=== PATIENT | male | born 1995 | race African-American/Black ===

== ENCOUNTER 2016-05-30 22:40 | Inpatient (IN) | payer BC ==
[2016-05-30] MEDS ORDERED: diPHENhydraMINE PO* 50 MG PO ONE (23:10)
[2016-05-30] MEDS ORDERED: diPHENhydraMINE PO* 50 MG ONE (23:12)
[2016-05-30 23:16] LABS: Hematocrit 50 % (42-52); Hemoglobin 16.7 g/dl (14.0-18.0); Mean Corpuscular HGB Conc 34 g/dl (31-36); Mean Corpuscular Hemoglobin 28 pg (27-31); Mean Corpuscular Volume 83 fL (80-94); Mean Platelet Volume 8 um3 (7.4-10.4); Red Blood Count 5.94 10^6/ul (4.0-5.4); Red Cell Distribution Width 13 % (10.5-15); White Blood Count 11.9 10^3/ul (3.5-10.8)
[2016-05-30 23:17] LABS: Urine Bilirubin Negative (Negative); Urine Glucose Negative (Negative); Urine Nitrite Negative (Negative)
[2016-05-30 23:31] LABS: ALT 141 U/L (7-52); AST 49 U/L (13-39); Alkaline Phosphatase 96 U/L (34-104); Anion Gap -1 mmol/L (2-11); BUN/Creatinine Ratio 8.5 (8-20); Benzodiazepine Urine Screen None Detected (None Detect); Blood Urea Nitrogen 10 mg/dL (6-24); CO2 Carbon Dioxide 25 mmol/L (22-32); Calcium 10.3 mg/dL (8.6-10.3); Chloride 106 mmol/L (101-111); EGFR African American 101.2 (>60); EGFR Non-African American 78.7 (>60); Globulin 2.7 g/dL (2-4); Glucose 108 mg/dL (70-100); Potassium 3.4 mmol/L (3.5-5.0); Sodium 130 mmol/L (133-145); Total Protein 7.7 g/dL (6.4-8.9)
[2016-05-30 23:56] LABS: Acetaminophen < 15 mcg/mL; Alcohol < 10 mg/dL (<10); Salicylate < 2.50 mg/dL (<30)
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
[2016-05-31 00:06] LABS: TSH (Thyroid Stimulating Horm) 3.31 mcIU/mL (0.34-5.60)
[2016-05-31] MEDS ORDERED: Ziprasidone CAP* 80 MG PO ONE (03:36)
[2016-05-31] MEDS ORDERED: Ziprasidone CAP* 80 MG ONE (03:45)
[2016-05-31] MEDS ORDERED: Al Hydrox/Mg Hydrox/Simet LIQ* 30 ML UDC PO PRN (08:08)
[2016-05-31] MEDS ORDERED: Acetaminophen TAB* 325 MG PO PRN (08:08)
--- NOTE | 2016-05-31 15:07 | PN ---
Subjective - Subjective Service Type: 32369 Hosp care 15 min low complexity Subjective: Pt's mother presented to the ED and asked about potential discharge (mother talked about staying with him). I reviewed the patients H&P and D/c Summary from his last hospitalization in 2013 and the mental health evaluation from yesterday. Although his symptoms have have been exacerbated due to recent stressors, I am concerned about SI "all the time" (with secret overdose 1 mo ago and recent acute SI) and reported symptoms of depression over the last week. Because of this, I recommend continuing to hold for psychiatric hospitalization. To consider re-evaluating the patient tomorrow if symptoms remain stable overnight. Plan - Plan Treatment Plan: Name: LORE ROPER Birthdate: 1995 [id number] Medications: Current Medications Acetaminophen (Tylenol Tab*) 650 mg PO Q4H PRN PRN Reason: PAIN or TEMP > 101 F Al Hydrox/Mg Hydrox/Simethicone (Maalox Plus*) 30 ml PO Q4H PRN PRN Reason: INDIGESTION Device (Nicotine Mouth Piece*) 1 each INH .CARTRIDGE CASS Hydroxyzine HCl (Atarax Tab*) 50 mg PO Q12H PRN PRN Reason: ANXIETY, AGITATION Multivitamins (Theragran Tab*) 1 tab PO DAILY CASS Nicotine (Nicotine Inhaler*) 10 mg INH Q2H PRN PRN Reason: CRAVING Nicotine Polacrilex (Nicotine Gum*) 2 mg PO Q2H PRN PRN Reason: CRAVING Ziprasidone (Geodon Cap*) 80 mg PO BEDTIME CASS
--- NOTE | 2016-05-31 15:58 | PN ---
ED Flex Patient Progress Note Subjective: This is a 21 year-old male who is pending transfer to another psychiatric facility. Pt offers no complaints at this time. Appears stable and calm. Objective: Vitals: Most recent vital signs documented below. General NAD, Alert and oriented x3. Heart: rrr Lungs: CTA without rales, rhonchi, wheezing Laboratory: Current laboratory results documented below. Assessment: Stable awaiting transfer Plan: Pending psychiatric transfer. Will monitor. Vital Signs Temp Pulse Resp BP Pulse Ox 97.3 F 73 16 123/57 98 05/31/16 15:52 05/31/16 15:52 05/31/16 15:52 05/31/16 15:52 05/31/16 15:52 Lab Results - Entire Visit 05/30/16 05/30/16 05/30/16 23:07 23:07 23:07 WBC RBC Hgb Hct MCV MCH MCHC RDW Plt Count MPV Neut % (Auto) Lymph % (Auto) [place] % (Auto) Eos % (Auto) Baso % (Auto) Absolute Neuts (auto) Absolute Lymphs (auto) Absolute Monos (auto) Absolute Eos (auto) Absolute Basos (auto) Absolute Nucleated RBC Nucleated RBC % Sodium 130 L Potassium 3.4 L Chloride 106 Carbon Dioxide 25 Anion Gap -1 L BUN 10 Creatinine 1.18 H Est GFR ( Amer) 101.2 Est GFR (Non-Af Amer) 78.7 BUN/Creatinine Ratio 8.5 Glucose 108 H Calcium 10.3 Total Bilirubin 0.60 AST 49 H ALT 141 H Alkaline Phosphatase 96 Total Protein 7.7 Albumin 5.0 Globulin 2.7 Albumin/Globulin Ratio 1.9 TSH 3.31 Urine Color Yellow Urine Appearance Clear Urine pH 5.0 Ur Specific [place] 1.023 Urine Protein Negative Urine Ketones Negative Urine Blood Negative Urine Nitrate Negative Urine Bilirubin Negative Urine Urobilinogen Negative Ur Leukocyte Esterase Negative Urine Glucose Negative Salicylates < 2.50 Urine Opiates Screen None detected Acetaminophen < 15 Ur Barbiturates Screen None detected Ur Phencyclidine Scrn None detected Ur Amphetamines Screen None detected U Benzodiazepines Scrn None detected Urine Cocaine Screen None detected U Cannabinoids Screen None detected Serum Alcohol < 10 05/30/16 23:07 WBC 11.9 H RBC 5.94 H Hgb 16.7 Hct 50 MCV 83 MCH 28 MCHC 34 RDW 13 Plt Count 286 MPV 8 Neut % (Auto) 73.1 Lymph % (Auto) 22.5 L Bacon % (Auto) 3.6 Eos % (Auto) 0.2 Baso % (Auto) 0.6 Absolute Neuts (auto) 8.7 H Absolute Lymphs (auto) 2.7 Absolute Monos (auto) 0.4 Absolute Eos (auto) 0 Absolute Basos (auto) 0.1 Absolute Nucleated RBC 0.01 Nucleated RBC % 0.1 Sodium Potassium Chloride Carbon Dioxide Anion Gap BUN Creatinine Est GFR ( Amer) Est GFR (Non-Af Amer) BUN/Creatinine Ratio Glucose Calcium Total Bilirubin AST ALT Alkaline Phosphatase Total Protein Albumin Globulin Albumin/Globulin Ratio TSH Urine Color Urine Appearance Urine pH Ur Specific [place] Urine Protein Urine Ketones Urine Blood Urine Nitrate Urine Bilirubin Urine Urobilinogen Ur Leukocyte Esterase Urine Glucose Salicylates Urine Opiates Screen Acetaminophen Ur Barbiturates Screen Ur Phencyclidine Scrn Ur Amphetamines Screen U Benzodiazepines Scrn Urine Cocaine Screen U Cannabinoids Screen Serum Alcohol
[2016-05-31] MEDS: Ziprasidone CAP* 80 MG PO SCH (21:07)
[2016-06-01] MEDS: Ziprasidone CAP* 80 MG PO SCH (20:46)
[2016-06-02] MEDS: Nicotine Inhaler* 10 MG AMP INH PRN ×3 (05:45→20:13)
[2016-06-02] MEDS: Mouth Piece, Nicotine* 1 EACH CARTRIDGE INH SCH (05:45)
[2016-06-02] MEDS: Nicotine GUM* 2 MG PO PRN ×2 (05:45→07:56)
[2016-06-02] MEDS: Vitamin THERAPEUTIC TAB PO SCH ×3 (07:39→11:07)
[2016-06-02] MEDS ORDERED: Nicotine Inhaler* 10 MG AMP INH PRN (13:10)
[2016-06-02] MEDS: Nicotine PATCH 21 MG/24 HR* PATCH TRANSDERM SCH (13:45)
--- NOTE | 2016-06-02 13:46 | PN ---
MHU: Group Therapy Note - Service Type Service Type: [id number] Group Psychotherapy - Cognitive Behavioral Group Therapy ( CBT):Patient was attentive and participatory in CBT programming this morning, and remained in good behavioral control. Patient expressed positive insights regarding relevant treatment interventions and goals.
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
[2016-06-02] MEDS: Ziprasidone CAP* 80 MG PO SCH (20:02)
[2016-06-02] MEDS ORDERED: Mouth Piece, Nicotine* 1 EACH CARTRIDGE ONE (20:13)
[2016-06-02] MEDS: Nicotine Patch Removal NOTE PATCH OFF SCH (20:14)
[2016-06-03 09:10] LABS: Albumin 4.4 g/dL (3.2-5.2); BUN/Creatinine Ratio 10.7 (8-20); Calcium 10.1 mg/dL (8.6-10.3); EGFR African American 98.3 (>60); EGFR Non-African American 76.5 (>60); Globulin 2.4 g/dL (2-4); Potassium 4.8 mmol/L (3.5-5.0); Total Bilirubin 0.5 mg/dL (0.2-1.0); Total Protein 6.8 g/dL (6.4-8.9)
[2016-06-03] MEDS: Vitamin THERAPEUTIC TAB PO SCH (09:52)
[2016-06-03] MEDS: Nicotine PATCH 21 MG/24 HR* PATCH TRANSDERM SCH (09:52)
--- NOTE | 2016-06-03 11:50 | PN ---
Subjective - Subjective Service Type: 64656 Hosp care 15 min low complexity Subjective: Lore reports feeling better, calm and peaceful in mood. He denies any dangerous intent or plan. He feels that with supported housing, he will be in a safer place. He looks forward to likely discharge tomorrow. Objective - Appearance Appearance: Healthy Appearing Dysmorphic Features: No Hygiene: Normal Grooming: Well Kept - Behavior Psychomotor Activities: Normal Exhibits Abnormal Movement: No - Attitude and Relatedness Attitude and Relatedness: Well Related Eye Contact: Good - Speech Quality: Unpressured Latencies: Normal Quantity: Appropriate - Mood Patient's Decription of Mood: "Calm and peaceful" - Affect Observed Affect: Good Affect Consistent with: Euthymia - Thought Process Patient's Thought Process: Coherent, Goal Directed Thought Content: No Passive Wish, No Suicidal Planning, No Homicidal Ideation, No Paranoid Ideation - Sensorium Experiencing Hallucinations: No, Sensorium is Clear Type of Hallucinations: Visual: No, Auditory: No, Command: No - Level of Consciousness Level of Consciousness: Alert Orientation: Yes Intact, Yes Orientated to Time, Yes Orientated to Place, Yes Orientated to Person - Impulse Control Impulse Control: Intact - Insight and Judgement Insight and Judgement: Fair - Group Participation Particating in Group Activities: Yes Group Participation Comments: but only about 1/2 of offered groups - Medication Management Medication Management Adherence: Yes Assessment - Assessment Merits Inpatient Hospitalization: Consolidate Improvements, For Discharge Planning Inpatient DSM-IV Dx: Major depressive disorder, recurrent, moderate; ADHD by history; personality disorder diagnosis deferred. Clinical Impression: Lore Simpson is a 21-year-old, single father of a 10 month-old child, who has been admitted out of concern for his safety from his report of daily suicidal ideation following a suicide attempt about a month ago by overdose on a bottle of Geodon and a bottle of what was most likely a stimulant. He states that having had time to think about this during the course of an extended stay in the ED flex space awaiting a bed to come open here, he has had resolution of suicidal ideation and feels safe for discharge. In order to ensure that discharge is into a safe setting, we will be gathering further collateral from his family. We will also be speaking with any care providers that we can determine has seen him recently, but he reports that he has been getting his prescriptions refilled without seeing anyone [id number], and has lapsed from care at [facility] for about the past five to six months. We will be calling [facility] to find out more about his history there and also to collaborate care going forward. For now, we are continuing his Geodon, but will discuss with him and with past providers at [facility] what other medications have perhaps been successful in the past or what med trials they feel may be helpful per experience they may have with him. We will be encouraging him to make use of the therapeutic milieu and groups. We will be monitoring his mental status and safety on 15 minute checks. We will be working toward disposition of returning home with follow-up care at [facility]. Will repeat CMP to monitor sodium , potassium, creatinine, transaminases and glucose. 06.03.16 Lore reports improved mental status with sustained remission of SI and good mood, and without any psychotic symptoms. Recheck of CMP found recovering transaminases and glucose. Continued elevation of creatinine to around 1.2 is an increase from prior checks over the past 3 years in the 0.9-1.1 range, but the GFR calculated from the current reading is in the normal range for this -[place] male. Planning for discharge tomorrow if housing arrangements are in place. Plan - Plan Treatment Plan: Name: LORE SIMPSON Birthdate: 1995 [id number] Continue current meds. Encourage groups, milieu. Monitor MS, safety. Plan toward possible d/c tomorrow. Continued Medication Management: Continue Outpt Medication Medications: Current Medications Acetaminophen (Tylenol Tab*) 650 mg PO Q4H PRN PRN Reason: PAIN or TEMP > 101 F Al Hydrox/Mg Hydrox/Simethicone (Maalox Plus*) 30 ml PO Q4H PRN PRN Reason: INDIGESTION Device (Nicotine Mouth Piece*) 1 each INH .[facility] Last Admin: 06/02/16 05:45 Dose: 1 each Hydroxyzine HCl (Atarax Tab*) 50 mg PO Q12H PRN PRN Reason: ANXIETY, AGITATION Multivitamins (Theragran Tab*) 1 tab PO DAILY [facility] Last Admin: 06/03/16 09:52 Dose: 1 tab Nicotine (Nicotine Inhaler*) 10 mg INH Q2H PRN PRN Reason: CRAVING Last Admin: 06/02/16 20:13 Dose: 10 mg Nicotine (Nicotine Patch 21 Mg/24 Hr*) 1 patch TRANSDERM DAILY@0800 [facility] Last Admin: 06/03/16 09:52 Dose: 1 patch Nicotine Polacrilex (Nicotine Gum*) 2 mg PO Q2H PRN PRN Reason: CRAVING Last Admin: 06/02/16 07:56 Dose: 2 mg Pharmacy Profile Note (Nicotine Patch Removal Note*) 1 note PATCH OFF 2100 [facility] Last Admin: 06/02/16 20:14 Dose: 1 note Ziprasidone (Geodon Cap*) 80 mg PO BEDTIME [facility] Last Admin: 06/02/16 20:02 Dose: 80 mg - Discharge Plan Discharge Plan: Outpatient Follow Up Outpatient Program: [facility]
--- NOTE | 2016-06-03 11:51 | PN ---
MHU: Group Therapy Note - Service Type Service Type: 07300 Group Psychotherapy - Cognitive Behavioral Group Therapy ( CBT):Patient was attentive and participatory in CBT programming this morning, and remained in good behavioral control. Patient expressed positive insights regarding relevant treatment interventions and goals.
[2016-06-03] MEDS: Mouth Piece, Nicotine* 1 EACH CARTRIDGE INH SCH (15:33)
[2016-06-03] MEDS: Nicotine Inhaler* 10 MG AMP INH PRN (15:33)
[2016-06-03] MEDS: Ziprasidone CAP* 80 MG PO SCH (20:07)
[2016-06-03] MEDS: hydrOXYzine HCL TAB* 50 MG PO PRN (20:07)
[2016-06-03] MEDS: Nicotine Patch Removal NOTE PATCH OFF SCH (20:07)
[2016-06-04] MEDS: Nicotine PATCH 21 MG/24 HR* PATCH TRANSDERM SCH (08:28)
[2016-06-04] MEDS: Vitamin THERAPEUTIC TAB PO SCH (08:29)
--- NOTE | 2016-06-04 11:53 | PN ---
MHU: Group Therapy Note - Service Type Service Type: 66249 Group Psychotherapy - Cognitive Behavioral Group Therapy ( CBT):Patient was attentive and participatory in CBT programming this morning, and remained in good behavioral control. Patient expressed positive insights regarding relevant treatment interventions and goals.
[2016-06-04] MEDS: Nicotine Inhaler* 10 MG AMP INH PRN (18:01)
--- NOTE | 2016-06-04 18:26 | PN ---
Subjective - Subjective Service Type: 78861 Hosp care 15 min low complexity Subjective: Sabino reports feeling safe and ready to discharge tomorrow. He has no complaints. Objective - Appearance Appearance: Healthy Appearing Dysmorphic Features: No Hygiene: Normal Grooming: Fairly Well Kept - Behavior Psychomotor Activities: Normal Exhibits Abnormal Movement: No - Attitude and Relatedness Attitude and Relatedness: Well Related Eye Contact: Good - Speech Quality: Unpressured Latencies: Normal Quantity: Appropriate - Mood Patient's Decription of Mood: "Fine" - Affect Observed Affect: Good Affect Consistent with: Euthymia - Thought Process Patient's Thought Process: Coherent, Goal Directed Thought Content: No Passive Wish, No Suicidal Planning, No Homicidal Ideation, No Paranoid Ideation - Sensorium Experiencing Hallucinations: No, Sensorium is Clear Type of Hallucinations: Visual: No, Auditory: No, Command: No - Level of Consciousness Level of Consciousness: Alert Orientation: Yes Intact, Yes Orientated to Time, Yes Orientated to Place, Yes Orientated to Person - Impulse Control Impulse Control: Tenuous - Insight and Judgement Insight and Judgement: Fair - Group Participation Particating in Group Activities: Yes - Medication Management Medication Management Adherence: Yes Assessment - Assessment Merits Inpatient Hospitalization: Consolidate Improvements, For Discharge Planning Inpatient DSM-IV Dx: Major depressive disorder, recurrent, moderate; ADHD by history; personality disorder diagnosis deferred. Clinical Impression: Sabino Simpson is a 21-year-old, single father of a 10 month-old child, who has been admitted out of concern for his safety from his report of daily suicidal ideation following a suicide attempt about a month ago by overdose on a bottle of Geodon and a bottle of what was most likely a stimulant. He states that having had time to think about this during the course of an extended stay in the ED flex space awaiting a bed to come open here, he has had resolution of suicidal ideation and feels safe for discharge. In order to ensure that discharge is into a safe setting, we will be gathering further collateral from his family. We will also be speaking with any care providers that we can determine has seen him recently, but he reports that he has been getting his prescriptions refilled without seeing anyone [id number], and has lapsed from care at [facility] for about the past five to six months. We will be calling [facility] to find out more about his history there and also to collaborate care going forward. For now, we are continuing his Geodon, but will discuss with him and with past providers at [facility] what other medications have perhaps been successful in the past or what med trials they feel may be helpful per experience they may have with him. We will be encouraging him to make use of the therapeutic milieu and groups. We will be monitoring his mental status and safety on 15 minute checks. We will be working toward disposition of returning home with follow-up care at [facility]. Will repeat CMP to monitor sodium , potassium, creatinine, transaminases and glucose. 06.03.16 Sabino reports improved mental status with sustained remission of SI and good mood, and without any psychotic symptoms. Recheck of CMP found recovering transaminases and glucose. Continued elevation of creatinine to around 1.2 is an increase from prior checks over the past 3 years in the 0.9-1.1 range, but the GFR calculated from the current reading is in the normal range for this -Italian male. Planning for discharge tomorrow if housing arrangements are in place. 06.04.16 Sabino will discharge tomorrow morning. He has no complaints, and follow up care is in place per nurse discharge planner Kalpana Rocha. Plan - Plan Treatment Plan: Name: SABINO SIMPSON Birthdate: 1995 [id number] Continue current meds. Encourage groups, milieu. Monitor MS, safety. Plan toward d/c tomorrow. Medications: Current Medications Acetaminophen (Tylenol Tab*) 650 mg PO Q4H PRN PRN Reason: PAIN or TEMP > 101 F Al Hydrox/Mg Hydrox/Simethicone (Maalox Plus*) 30 ml PO Q4H PRN PRN Reason: INDIGESTION Device (Nicotine Mouth Piece*) 1 each INH .[facility] Last Admin: 06/03/16 15:33 Dose: 1 each Hydroxyzine HCl (Atarax Tab*) 50 mg PO Q12H PRN PRN Reason: ANXIETY, AGITATION Last Admin: 06/03/16 20:07 Dose: 50 mg Multivitamins (Theragran Tab*) 1 tab PO DAILY [facility] Last Admin: 06/04/16 08:29 Dose: 1 tab Nicotine (Nicotine Inhaler*) 10 mg INH Q2H PRN PRN Reason: CRAVING Last Admin: 06/04/16 18:01 Dose: 10 mg Nicotine (Nicotine Patch 21 Mg/24 Hr*) 1 patch TRANSDERM DAILY@0800 [facility] Last Admin: 06/04/16 08:28 Dose: 1 patch Nicotine Polacrilex (Nicotine Gum*) 2 mg PO Q2H PRN PRN Reason: CRAVING Last Admin: 06/02/16 07:56 Dose: 2 mg Pharmacy Profile Note (Nicotine Patch Removal Note*) 1 note PATCH OFF 2100 [facility] Last Admin: 06/03/16 20:07 Dose: 1 note Ziprasidone (Geodon Cap*) 80 mg PO BEDTIME [facility] Last Admin: 06/03/16 20:07 Dose: 80 mg - Discharge Plan Discharge Plan: Outpatient Follow Up Outpatient Program: [facility]
--- NOTE | 2016-06-04 18:35 | DS ---
Subjective - Subjective Service Types: 81560 [facility] Day Mgmt simple under 30 min Discharge Date: 06/05/16 Subjective: On the evening before planned discharge, Sabino reports feeling safe and ready to go. He has no complaints. Treatment Course & Assessment Clinical Course & Impression: Sabino Simpson is a 21-year-old, single father of a 10 month-old child, who was admitted out of concern for his safety due to his report of daily suicidal ideation following a suicide attempt about a month ago by overdose on a bottle of Geodon and a bottle of what was most likely a stimulant. He states that having had time to think about this during the course of an extended stay in the ED flex space awaiting a bed to come open here, he has had resolution of suicidal ideation and feels safe for discharge. In order to ensure that discharge is into a safe setting, we will be gathering further collateral from his family. We will also be speaking with any care providers that we can determine has seen him recently, but he reports that he has been getting his prescriptions refilled without seeing anyone [id number], and has lapsed from care at [facility] for about the past five to six months. We will be calling [facility] to find out more about his history there and also to collaborate care going forward. For now, we are continuing his Geodon, but will discuss with him and with past providers at [facility] what other medications have perhaps been successful in the past or what med trials they feel may be helpful per experience they may have with him. We will be encouraging him to make use of the therapeutic milieu and groups. We will be monitoring his mental status and safety on 15 minute checks. We will be working toward disposition of returning home with follow-up care at [facility]. Will repeat CMP to monitor sodium , potassium, creatinine, transaminases and glucose. 06.03.16 Sabino reports improved mental status with sustained remission of SI and good mood, and without any psychotic symptoms. Recheck of CMP found recovering transaminases and glucose. Continued elevation of creatinine to around 1.2 is an increase from prior checks over the past 3 years in the 0.9-1.1 range, but the GFR calculated from the current reading is in the normal range for this -[place] male. Planning for discharge tomorrow if housing arrangements are in place. 06.04.16 Sabino will discharge tomorrow. He has no complaints, and follow up care is in place per space planner Kalpana Rocha. She has spoken with Sabino 's parents, who after some explanation are supportive of plan for Sabino to have case management and to enter into supportive housing at [facility] once it is available under [employer] application. Clinical reports and my own interactions with Sabino indicate that he is at no acutely increased risk of harm to self or others and capable of adequate self-care to avoid harm, so is cleared for discharge. I have asked Dr Hou or Dr Rahman to do a brief safety check and place a discharge order following the meeting planned at 3 pm by Ms Rocha with Sabino and his mother. ONly additional medication is hydroxyzine: continuing on Geodon Merits Inpatient Hospitalization: No Clear for Discharge: Adequate Clinical Respons, Acceptable Safety Profile, Low Utility of In Care Inpatient DSM-IV Dx: Major depressive disorder, recurrent, moderate; ADHD by history; personality disorder diagnosis deferred. - [place] III Medical Illness: mild hypertension - [place] IV Stressors: conflict with mother of 10 month-old son over suspected infidelity Family: supportive parents Primary Support Group: family - [place] V [id number]: 70 Estimate of Highest-Past Year: 70 Discharge Planning - Discharge Planning Discharge Plan: Outpatient Follow Up Outpatient Program: [facility] Recommendations for Continuing Care: Medication Management, Psychotherapy Medications: Hydroxyzine HCl (Atarax Tab*) 50 mg PO Q12H PRN PRN Reason: ANXIETY, AGITATION Last Admin: 06/03/16 20:07 Dose: 50 mg Multivitamins (Theragran Tab*) 1 tab PO DAILY [facility] Last Admin: 06/04/16 08:29 Dose: 1 tab Ziprasidone (Geodon Cap*) 80 mg PO BEDTIME [facility] Last Admin: 06/03/16 20:07 Dose: 80 mg Refused nicotine replacement, plans to resume smoking against my advice Discharge Planning: Prescriptions provided for discharge [x] Yes [] No Follow up care details as per social work arrangements. Patient response to discharge plan: [x] eager for discharge [x] agreeable with discharge plan [] ambivalent about discharge [] disagrees with discharge today
[2016-06-04] MEDS: Ziprasidone CAP* 80 MG PO SCH (20:14)
[2016-06-04] MEDS: hydrOXYzine HCL TAB* 50 MG PO PRN (20:14)
[2016-06-04] MEDS: Nicotine Patch Removal NOTE PATCH OFF SCH (20:15)
[2016-06-05 07:51] VITALS: BP 135/66
[2016-06-05] MEDS: Vitamin THERAPEUTIC TAB PO SCH (09:29)
[2016-06-05] MEDS: Nicotine PATCH 21 MG/24 HR* PATCH TRANSDERM SCH (09:29)
[2016-06-05] MEDS: Nicotine Inhaler* 10 MG AMP INH PRN (13:03)
--- NOTE | 2016-06-05 15:41 | DCNOTE ---
Subjective - Subjective Service Types: 25964 Hosp DC Day Mgmt simple under 30 min Discharge Date: 06/05/16 Subjective: Discussed with tx. team, and met with Sabino and his parents. Sabino reports subjective improvements, denies setbacks, and affirms he feels safe and is free of suicidal thoughts. He agrees with treatment and aftercare plan, and says he sees no obstacles to routine or emergency help. His parents supported his release. They see his mood and demeanor as improved. Their only concern was his historic pattern of rejecting help. I reviewed good practices for stigma free communication to reduce isolation, and provide a framework for evaluating crises; and confirmed no firearms in the residences contemplated for Sabino after release. Objective - Appearance Appearance: Well Developed/Nourished Hygiene: Normal Grooming: Fairly Well Kept - Behavior Psychomotor Activities: Normal - Attitude and Relatedness Attitude and Relatedness: Regressed Eye Contact: Fair - Speech Quality: Unpressured Latencies: Normal Quantity: Appropriate - Mood Patient's Decription of Mood: "Irritable" - Affect Observed Affect: Labile Affect Consistent with: Euthymia - Thought Process Patient's Thought Process: Coherent, Goal Directed Thought Content: No Passive Wish, No Suicidal Planning, No Homicidal Ideation, No Paranoid Ideation - Sensorium Experiencing Hallucinations: No, Sensorium is Clear - Level of Consciousness Level of Consciousness: Alert - Impulse Control Impulse Control: Intact - Insight and Judgement Insight and Judgement: Fair DC Assessment - Assessment Clinical Impression: 21-year-old male with history of prior psychiatric hospitalizations, mood disorder, adolescent ODD, ADHD, borderline intellectual functioning, multiple episodes of suicidal behavior, self injury. He is clear for release. Discharge was planned and no observations now or events since last evaluation suggest we should interrupt it. Risk concern centered on suicidal ideation. Chronic risk is elevated based on patient's condition and history, but acute risk is reduced and assessed as low on basis of low symptom burden, benign ideation and behavior, and correction of acute impairing factors. See Dr. Friedman's discharge summary for more details. Clear for Discharge: Adequate Clinical Respons, Acceptable Safety Profile, Low Utility of Inpt Care Inpatient DSM-IV Dx: Major depressive disorder, recurrent, moderate; ADHD by history; personality disorder diagnosis deferred. Discharge Planning - Discharge Planning Discharge Plan: Outpatient Follow Up Medications: Current Medications Acetaminophen (Tylenol Tab*) 650 mg PO Q4H PRN PRN Reason: PAIN or TEMP > 101 F Al Hydrox/Mg Hydrox/Simethicone (Maalox Plus*) 30 ml PO Q4H PRN PRN Reason: INDIGESTION Device (Nicotine Mouth Piece*) 1 each INH .[facility] Last Admin: 06/03/16 15:33 Dose: 1 each Hydroxyzine HCl (Atarax Tab*) 50 mg PO Q12H PRN PRN Reason: ANXIETY, AGITATION Last Admin: 06/04/16 20:14 Dose: 50 mg Multivitamins (Theragran Tab*) 1 tab PO DAILY [facility] Last Admin: 06/05/16 09:29 Dose: 1 tab Nicotine (Nicotine Inhaler*) 10 mg INH Q2H PRN PRN Reason: CRAVING Last Admin: 06/05/16 13:03 Dose: 10 mg Nicotine (Nicotine Patch 21 Mg/24 Hr*) 1 patch TRANSDERM DAILY@0800 [facility] Last Admin: 06/05/16 09:29 Dose: 1 patch Nicotine Polacrilex (Nicotine Gum*) 2 mg PO Q2H PRN PRN Reason: CRAVING Last Admin: 06/02/16 07:56 Dose: 2 mg Pharmacy Profile Note (Nicotine Patch Removal Note*) 1 note PATCH OFF 2100 [facility] Last Admin: 06/04/16 20:15 Dose: 1 note Ziprasidone (Geodon Cap*) 80 mg PO BEDTIME [facility] Last Admin: 06/04/16 20:14 Dose: 80 mg
== END 2016-06-05 16:45 | disposition home or self-care (01) | DRG 751 ==
LOC: ED 22:40 → BSU 06-01 19:04
PROVIDERS: ADMIT Psychiatry & Neurology Psychiatry; ATTEND Psychiatry & Neurology Psychiatry
DX: F33.1 Major depressive disorder, recurrent, moderate (principal); R45.851 Suicidal ideations; I10 Essential (primary) hypertension; F90.9 Attention-deficit hyperactivity disorder, unspecified type; R41.83 Borderline intellectual functioning; F17.210 Nicotine dependence, cigarettes, uncomplicated
CPT/HCPCS: 36415; 80053; 80307; 80320; 80329; 81003; 84443; 85025; 90853; 99222; 99231; 99238; A9270-GY; G0480

== ENCOUNTER 2016-09-10 00:27 | Inpatient (IN) | payer BC ==
[2016-09-10] MEDS ORDERED: Ziprasidone CAP* 80 MG PO ONE (01:20)
[2016-09-10] MEDS ORDERED: Nicotine PATCH 21 MG/24 HR* PATCH TRANSDERM ONE (01:31)
[2016-09-10 02:00] LABS: Hematocrit 48 % (42-52); Hemoglobin 16.1 g/dl (14.0-18.0); Mean Corpuscular HGB Conc 34 g/dl (31-36); Mean Corpuscular Hemoglobin 28 pg (27-31); Mean Corpuscular Volume 84 fL (80-94); Mean Platelet Volume 8 um3 (7.4-10.4); Red Blood Count 5.66 10^6/ul (4.0-5.4); Red Cell Distribution Width 14 % (10.5-15); Urine Bilirubin Negative (Negative); Urine Glucose Negative (Negative); Urine Nitrite Negative (Negative); White Blood Count 12.4 10^3/ul (3.5-10.8)
[2016-09-10] MEDS ORDERED: Ziprasidone * 20 MG CAP (generic Geodon) PO ONE (02:00)
[2016-09-10 02:09] LABS: ALT 70 U/L (7-52); AST 57 U/L (13-39); Alkaline Phosphatase 71 U/L (34-104); Anion Gap 9 mmol/L (2-11); BUN/Creatinine Ratio 11.2 (8-20); Blood Urea Nitrogen 14 mg/dL (6-24); CO2 Carbon Dioxide 25 mmol/L (22-32); Calcium 9.9 mg/dL (8.6-10.3); Chloride 105 mmol/L (101-111); EGFR African American 94.7 (>60); EGFR Non-African American 73.6 (>60); Globulin 2.7 g/dL (2-4); Glucose 124 mg/dL (70-100); Potassium 3.5 mmol/L (3.5-5.0); Sodium 139 mmol/L (133-145); Total Protein 7.7 g/dL (6.4-8.9)
[2016-09-10 02:18] LABS: Acetaminophen < 15 mcg/mL; Alcohol < 10 mg/dL (<10); Benzodiazepine Urine Screen None Detected (None Detect); Salicylate < 2.50 mg/dL (<30)
[2016-09-10] MEDS ORDERED: LORazepam TAB(*) 1 MG PO ONE (06:56)
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
[2016-09-10] MEDS ORDERED: Al Hydrox/Mg Hydrox/Simet LIQ* 30 ML UDC PO PRN (17:56)
[2016-09-10] MEDS ORDERED: Acetaminophen TAB* 325 MG PO PRN (17:56)
[2016-09-10] MEDS: Ziprasidone * 20 MG CAP (generic Geodon) PO SCH (20:45)
[2016-09-10] MEDS: hydrOXYzine HCL TAB* 50 MG PO PRN (22:33)
[2016-09-11] MEDS: Ziprasidone * 20 MG CAP (generic Geodon) PO SCH ×2 (08:25→16:31)
[2016-09-11] MEDS: Vitamin THERAPEUTIC TAB PO SCH (08:25)
[2016-09-11] MEDS: hydrOXYzine HCL TAB* 50 MG PO PRN (20:33)
[2016-09-12] MEDS: Vitamin THERAPEUTIC TAB PO SCH (08:26)
[2016-09-12] MEDS: Ziprasidone * 20 MG CAP (generic Geodon) PO SCH ×2 (08:26→16:33)
--- NOTE | 2016-09-12 18:47 | PN ---
Subjective - Subjective Service Type: 22732 Hosp care 15 min low complexity Subjective: Lore reports wanting discharge. His family has reported concern for their safety from Lore. Objective - Appearance Appearance: Healthy Appearing Dysmorphic Features: No Hygiene: Normal Grooming: Fairly Well Kept - Behavior Psychomotor Activities: Normal Exhibits Abnormal Movement: No - Attitude and Relatedness Attitude and Relatedness: Cooperative Eye Contact: Good - Speech Quality: Unpressured Latencies: Normal Quantity: Appropriate - Mood Patient's Decription of Mood: "Good" - Affect Observed Affect: Fair Affect Consistent with: Euthymia - Thought Process Patient's Thought Process: Coherent, Goal Directed Thought Content: No Passive Wish, No Suicidal Planning, No Homicidal Ideation, No Paranoid Ideation - Sensorium Experiencing Hallucinations: No, Sensorium is Clear Type of Hallucinations: Visual: No, Auditory: No, Command: No - Level of Consciousness Level of Consciousness: Alert Orientation: Yes Intact, Yes Orientated to Time, Yes Orientated to Place, Yes Orientated to Person - Impulse Control Impulse Control: Poor - Insight and Judgement Insight and Judgement: Poor - Group Participation Particating in Group Activities: Yes - Medication Management Medication Management Adherence: Yes Assessment - Assessment Merits Inpatient Hospitalization: For Immediate Safety, For Stabilization, For Ongoing Evaluation, For Discharge Planning, Pending Safe DC Plan Inpatient DSM-IV Dx: 1. Attention deficit hyperactivity disorder by history. 2. Cluster B traits. 3. Rule out mood disorder. 4. History of diagnosis with oppositional defiant disorder. Clinical Impression: Lore Simpson is a 21-year-old father of a [id number]-dft son, who has been admitted due to concern about expression of homicidal ideation toward his family. He had been seeking to be jailed for auto theft, but was unsuccessful in that endeavor. He had been off his medications and this is a likely cause of his behavioral disorganization. He states that he is feeling more stable now that he has had a single dose of Geodon. We will be encouraging him to make use of the therapeutic milieu and groups. We will be gathering collateral from [facility], his mother, the mother of his son, and her mother. He reports that these latter two have told him that they would like him to come home. His mother has expressed concern for her family's safety given his recent threats. This will be the le target symptom prior to discharge, stable remission of threatening behavior and verbal threats and any thoughts to harm others. 09.12.16: Today Lore asks that we consolidate his Geodon to a single 80 mg dose at bedtime. He reports all is well for discharge to the home of his girlfriend and her mother. His mother is concerned for her and her family's safety given Lore's menacing behavior prior to admission. Plan - Plan Treatment Plan: Name: LORE SIMPSON Birthdate: 1995 [id number] Consolidate Geodon to 80 mg HS dose. Consider family meeting with Lore and his mother. Monitor MS and safety. Encourage groups and milieu. Medications: Current Medications Acetaminophen (Tylenol Tab*) 650 mg PO Q4H PRN PRN Reason: for pain; or Temp >101 F Al Hydrox/Mg Hydrox/Simethicone (Maalox Plus*) 30 ml PO Q4H PRN PRN Reason: INDIGESTION Hydroxyzine HCl (Atarax Tab*) 50 mg PO BEDTIME PRN PRN Reason: INSOMNIA Last Admin: 09/11/16 20:33 Dose: 50 mg Multivitamins (Theragran Tab*) 1 tab PO DAILY [facility] Last Admin: 09/12/16 08:26 Dose: 1 tab Nicotine (Nicotine Inhaler*) 10 mg INH Q2H PRN PRN Reason: CRAVING Ziprasidone (Geodon (Generic) *) 40 mg PO 0800,1700 [facility] Last Admin: 09/12/16 16:33 Dose: 40 mg - Discharge Plan Discharge Plan: Outpatient Follow Up Outpatient Program: Isa Alvarez [facility]
[2016-09-12] MEDS: hydrOXYzine HCL TAB* 50 MG PO PRN (19:55)
[2016-09-13] MEDS: Vitamin THERAPEUTIC TAB PO SCH (08:23)
[2016-09-13] MEDS: Ziprasidone * 20 MG CAP (generic Geodon) PO SCH ×2 (08:23→16:34)
[2016-09-13] MEDS ORDERED: Mouth Piece, Nicotine* 1 EACH CARTRIDGE ONE (09:09)
[2016-09-13] MEDS: Nicotine Inhaler* 10 MG AMP INH PRN ×2 (09:10→16:35)
--- NOTE | 2016-09-13 16:21 | PN ---
Subjective - Subjective Service Type: 15221 Hosp care 15 min low complexity Subjective: Lore reports that his family wants to meet with the treatment team. He continues to report remission of dangerous intent or plan. He has no physical complaints. Objective - Appearance Appearance: Well Developed/Nourished Dysmorphic Features: No Hygiene: Normal Grooming: Fairly Well Kept - Behavior Psychomotor Activities: Normal Exhibits Abnormal Movement: No - Attitude and Relatedness Attitude and Relatedness: Cooperative Eye Contact: Fair - Speech Quality: Unpressured Latencies: Normal Quantity: Appropriate - Mood Patient's Decription of Mood: "Good" - "not as tired" - Affect Observed Affect: Fair Affect Consistent with: Euthymia - Thought Process Patient's Thought Process: Coherent, Goal Directed Thought Content: No Passive Wish, No Suicidal Planning, No Homicidal Ideation, No Paranoid Ideation - Sensorium Experiencing Hallucinations: No, Sensorium is Clear Type of Hallucinations: Visual: No, Auditory: No, Command: No - Level of Consciousness Level of Consciousness: Alert Orientation: Yes Intact, Yes Orientated to Time, Yes Orientated to Place, Yes Orientated to Person - Impulse Control Impulse Control: Intact - Insight and Judgement Insight and Judgement: Fair - Group Participation Particating in Group Activities: No Group Participation Comments: Declining most groups - Medication Management Medication Management Adherence: Yes Assessment - Assessment Merits Inpatient Hospitalization: For Stabilization, For Discharge Planning, Pending Safe DC Plan Inpatient DSM-IV Dx: 1. Attention deficit hyperactivity disorder by history. 2. Cluster B traits. 3. Rule out mood disorder. 4. History of diagnosis with oppositional defiant disorder. Clinical Impression: Lore Simpson is a 21-year-old father of a [id number]-izt son, who has been admitted due to concern about expression of homicidal ideation toward his family. He had been seeking to be jailed for auto theft, but was unsuccessful in that endeavor. He had been off his medications and this is a likely cause of his behavioral disorganization. He states that he is feeling more stable now that he has had a single dose of Geodon. We will be encouraging him to make use of the therapeutic milieu and groups. We will be gathering collateral from [facility], his mother, the mother of his son, and her mother. He reports that these latter two have told him that they would like him to come home. His mother has expressed concern for her family's safety given his recent threats. This will be the le target symptom prior to discharge, stable remission of threatening behavior and verbal threats and any thoughts to harm others. 09.12.16: Today Lore asks that we consolidate his Geodon to a single 80 mg dose at bedtime. He reports all is well for discharge to the home of his girlfriend and her mother. His mother is concerned for her and her family's safety given Lore's menacing behavior prior to admission. 09.13.16: Lore reports that he would like a meeting with his family to discuss their fears and concerns. He denies any active psychotic or other psychiatric symptoms. Plan - Plan Treatment Plan: Name: LORE SIMPSON Birthdate: 1995 [id number] Continue current meds. Consider family meeting with Lore and his mother. Monitor MS and safety. Encourage groups and milieu. Continued Medication Management: Continue Outpt Medication Medications: Current Medications Acetaminophen (Tylenol Tab*) 650 mg PO Q4H PRN PRN Reason: for pain; or Temp >101 F Al Hydrox/Mg Hydrox/Simethicone (Maalox Plus*) 30 ml PO Q4H PRN PRN Reason: INDIGESTION Hydroxyzine HCl (Atarax Tab*) 50 mg PO BEDTIME PRN PRN Reason: INSOMNIA Last Admin: 09/12/16 19:55 Dose: 50 mg Multivitamins (Theragran Tab*) 1 tab PO DAILY [facility] Last Admin: 09/13/16 08:23 Dose: 1 tab Nicotine (Nicotine Inhaler*) 10 mg INH Q2H PRN PRN Reason: CRAVING Last Admin: 09/13/16 09:10 Dose: 10 mg Ziprasidone (Geodon (Generic) *) 40 mg PO 0800,1700 [facility] Last Admin: 09/13/16 08:23 Dose: 40 mg - Discharge Plan Discharge Plan: Outpatient Follow Up
[2016-09-13] MEDS: hydrOXYzine HCL TAB* 50 MG PO PRN (20:41)
[2016-09-14] MEDS: Nicotine Inhaler* 10 MG AMP INH PRN ×2 (00:05→14:09)
[2016-09-14] MEDS: Vitamin THERAPEUTIC TAB PO SCH (08:24)
[2016-09-14] MEDS: Ziprasidone * 20 MG CAP (generic Geodon) PO SCH ×2 (08:24→16:51)
--- NOTE | 2016-09-14 14:01 | PN ---
[facility]: Group Therapy Note - Service Type Service Type: 71535 Group Psychotherapy - Cognitive Behavioral Group Therapy ( CBT):Patient was attentive and participatory in CBT programming this morning, and remained in good behavioral control. Patient expressed positive insights regarding relevant treatment interventions and goals.
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
[2016-09-14] MEDS: Divalproex ER TAB(*) 500 MG PO SCH (20:49)
[2016-09-14] MEDS: hydrOXYzine HCL TAB* 50 MG PO PRN (20:50)
[2016-09-15] MEDS: Ziprasidone * 20 MG CAP (generic Geodon) PO SCH ×2 (09:00→16:41)
[2016-09-15] MEDS: Vitamin THERAPEUTIC TAB PO SCH (09:01)
[2016-09-15] MEDS: Nicotine Inhaler* 10 MG AMP INH PRN (09:35)
[2016-09-15] MEDS: hydrOXYzine HCL TAB* 50 MG PO PRN ×2 (09:35→20:23)
--- NOTE | 2016-09-15 17:46 | PN ---
Subjective - Subjective Service Type: 49112 Hosp care 15 min low complexity Subjective: Lore continues to press for discharge. He complains of oversedation on loading dose of Depakote. He has no other physical complaints. He denies any active psychiatric symptoms. He agrees to family meeting . Objective - Appearance Appearance: Well Developed/Nourished Dysmorphic Features: No Hygiene: Normal Grooming: Fairly Well Kept - Behavior Psychomotor Activities: Abnormal-Decreased - with report of sedation from Depakote Exhibits Abnormal Movement: No - Attitude and Relatedness Attitude and Relatedness: Cooperative Eye Contact: Fair - Speech Quality: Unpressured Latencies: Normal Quantity: Appropriate - Mood Patient's Decription of Mood: "Good" - Affect Observed Affect: Fair Affect Consistent with: Euthymia - Thought Process Patient's Thought Process: Coherent, Goal Directed Thought Content: No Passive Wish, No Suicidal Planning, No Homicidal Ideation, No Paranoid Ideation - Sensorium Experiencing Hallucinations: No, Sensorium is Clear Type of Hallucinations: Visual: No, Auditory: No, Command: No - Level of Consciousness Level of Consciousness: Alert Orientation: Yes Intact, Yes Orientated to Time, Yes Orientated to Place, Yes Orientated to Person - Impulse Control Impulse Control: Intact - Insight and Judgement Insight and Judgement: Poor - Group Participation Particating in Group Activities: Yes - Medication Management Medication Management Adherence: Yes Assessment - Assessment Merits Inpatient Hospitalization: For Stabilization, For Ongoing Evaluation, Consolidate Improvements, For Discharge Planning Inpatient DSM-IV Dx: 1. Attention deficit hyperactivity disorder by history. 2. Cluster B traits. 3. Rule out mood disorder. 4. History of diagnosis with oppositional defiant disorder. Clinical Impression: Lore Simpson is a 21-year-old father of a [id number] son, who has been admitted due to concern about expression of homicidal ideation toward his family. He had been seeking to be jailed for auto theft, but was unsuccessful in that endeavor. He had been off his medications and this is a likely cause of his behavioral disorganization. He states that he is feeling more stable now that he has had a single dose of Geodon. We will be encouraging him to make use of the therapeutic milieu and groups. We will be gathering collateral from [facility], his mother, the mother of his son, and her mother. He reports that these latter two have told him that they would like him to come home. His mother has expressed concern for her family's safety given his recent threats. This will be the le target symptom prior to discharge, stable remission of threatening behavior and verbal threats and any thoughts to harm others. 17: Today Lore asks that we consolidate his Geodon to a single 80 mg dose at bedtime. He reports all is well for discharge to the home of his girlfriend and her mother. His mother is concerned for her and her family's safety given Lore's menacing behavior prior to admission. 09.13.17: Lore reports that he would like a meeting with his family to discuss their fears and concerns. He denies any active psychotic or other psychiatric symptoms. 09.14.16 Lore agrees to trial of Depakote against mood lability and impulsive anger. Will arrange for family meeting. 09.15. Lore complains of oversedation on Depakote. He is med and group compliant with no physical or psychiatric complaints. Plan - Plan Treatment Plan: Name: LORE SIMPSON Birthdate: 1995 [id number] Continue current meds. Family meeting with Lore and his parents . Monitor MS and safety. Encourage groups and milieu. Medications: Current Medications Acetaminophen (Tylenol Tab*) 650 mg PO Q4H PRN PRN Reason: for pain; or Temp >101 F Al Hydrox/Mg Hydrox/Simethicone (Maalox Plus*) 30 ml PO Q4H PRN PRN Reason: INDIGESTION Divalproex Sodium (Depakote Er Tab(*)) 1,000 mg PO BEDTIME [facility] Last Admin: 09/14/16 20:49 Dose: 1,000 mg Hydroxyzine HCl (Atarax Tab*) 50 mg PO Q4H PRN PRN Reason: ANXIETY/INSOMNIA Last Admin: 09/15/16 09:35 Dose: 50 mg Multivitamins (Theragran Tab*) 1 tab PO DAILY [facility] Last Admin: 09/15/16 09:01 Dose: 1 tab Nicotine (Nicotine Inhaler*) 10 mg INH Q2H PRN PRN Reason: CRAVING Last Admin: 09/15/16 09:35 Dose: 10 mg Ziprasidone (Geodon (Generic) *) 40 mg PO 0800,1700 [facility] Last Admin: 09/15/16 16:41 Dose: 40 mg - Discharge Plan Discharge Plan: Outpatient Follow Up
--- NOTE | 2016-09-15 20:07 | ED ---
Ramses, DoctorMaria De Jesus, scribed for Jewell Marshall MD on 09/10/16 at 0616 . Psychiatric Complaint - HPI Summary HPI Summary: 21 year old male brought to [facility] by EMS after making violent threats to his parents earlier this evening. He reports that he was very angry with his parents , and was picked up by the police from his child's mother's home. He states that he hasn't been taking his medications for the past four days, and feels much better now after taking a dose this evening (Ziprasidone). He denies any SI. Pt is currently very calm and cooperative. - History Of Current Complaint Chief Complaint: EDMentalHealth Time Seen by Provider: 09/10/16 01:08 Hx Obtained From: Patient Onset/Duration: Lasting Hours, Resolved Timing: Constant Severity Initially: Mild Severity Currently: Mild Character: Angry, Frustrated Aggravating Factor(s): Medication Non-compliance Alleviating Factor(s): Nothing Associated Signs And Symptoms: Positive: Negative Related History: Positive For: Prior Psychiatric Issues Has Suicidal: Denies: Thoughts, With A Plan Has Homicidal: Reports: Thoughts - threats to parents - Risk Factor(s) Completed Suicide Risk Factors: Male - Allergies/Home Medications Allergies/Adverse Reactions: Allergies Allergy/AdvReac Type Severity Reaction Status Date / Time No Known Allergies Allergy Verified 09/10/16 00:34 Home Medications: Home Medications Ziprasidone CAP* [Geodon CAP*] 40 mg PO BID 09/10/16 [History Confirmed 09/10/16 ] PMH/Surg Hx/FS Hx/Imm Hx Endocrine/Hematology History: Denies: Hx Diabetes, Hx Thyroid Disease Cardiovascular History: Denies: Hx Hypertension Respiratory History: Denies: Hx Asthma, Hx Chronic Obstructive Pulmonary Disease (COPD) GI History: Denies: Hx Gastroesophageal Reflux Disease, Hx Ulcer Neurological History: Denies: Hx Headaches Psychiatric History: Reports: Hx Attention Deficit Hyperactivity Disorder, Hx Inpatient Treatment, Hx Community Mental Health Tx, Hx Bipolar Disorder, Hx of Violent Episodes Against Others Denies: Hx Eating Disorder, Hx Depression - Surgical History Surgery Procedure, Year, and Place: tonsils Infectious Disease History: No Infectious Disease History: Denies: Hx Clostridium Difficile, Hx Hepatitis, Hx Human Immunodeficiency Virus (HIV), Hx of Known/Suspected MRSA, Hx Shingles, Hx Tuberculosis, Hx Known/ Suspected VRE, Hx Known/Suspected VRSA, History Other Infectious Disease, Traveled Outside the [place] in Last 30 Days - Family History Known Family History: Positive: Other Family History: Depression and eating disorder in twin sister. Half-sister with history of conduct problems. - Social History Lives: With Family Alcohol Use: Pt reports using ETOH the past 4 days Alcohol Amount: NOT IN 3-4 MONTHS Substance Use Type: Reports: None Substance Use Comment - Amount & Last Used: Pt denies at this time. Hx Tobacco Use: Yes Smoking Status (MU): Heavy Every Day Tobacco Smoker Type: Cigarettes Have You Smoked in the Last Year: Yes Review of Systems Negative: Fever Cardiovascular: Negative Respiratory: Negative Gastrointestinal: Negative Musculoskeletal: Negative Positive: Other - calm, cooperative All Other Systems Reviewed And Are Negative: Yes Physical Exam Triage Information Reviewed: Yes Vital Signs On Initial Exam: Initial Vitals Temp Pulse Resp BP Pulse Ox 99.1 F 107 16 167/89 99 09/10/16 00:29 09/10/16 00:29 09/10/16 00:29 09/10/16 00:29 09/10/16 00:29 Vital Signs Reviewed: Yes Appearance: Positive: Well-Appearing - hypertension and tachycardia noted, No Pain Distress, Well-Nourished Skin: Positive: Warm, Skin Color Reflects Adequate Perfusion, Dry Head/Face: Positive: Normal Head/Face Inspection Eyes: Positive: Conjunctiva Clear ENT: Positive: Normal ENT inspection Neck: Positive: Supple, Nontender Respiratory/Lung Sounds: Positive: Clear to Auscultation, Breath Sounds Present. Negative: Rales, Rhonchi, Wheezes Cardiovascular: Positive: RRR, Pulses are Symmetrical in both Upper and Lower Extremities. Negative: Murmur, Rub Abdomen Description: Positive: Nontender, Soft. Negative: Splenomegaly Bowel Sounds: Positive: Present Musculoskeletal: Positive: Strength/ROM Intact Neurological: Positive: Sensory/Motor Intact, Alert, Oriented to Person Place, Time Psychiatric: Positive: Affect/Mood Appropriate Diagnostics - Vital Signs Vital Signs Temp Pulse Resp BP Pulse Ox 09/10/16 00:29 99.1 F 107 16 167/89 99 - Laboratory Lab Results: Lab Results 09/10/16 09/10/16 09/10/16 Range/Units 01:30 01:30 01:30 WBC 12.4 H (3.5-10.8) 10^3/ul RBC 5.66 H (4.0-5.4) 10^6/ul Hgb 16.1 (14.0-18.0) g/dl Hct 48 (42-52) % MCV 84 (80-94) fL MCH 28 (27-31) pg MCHC 34 (31-36) g/dl RDW 14 (10.5-15) % Plt Count 261 (150-450) 10^3/ul MPV 8 (7.4-10.4) um3 Neut % (Auto) 67.0 (38-83) % Lymph % (Auto) 26.6 (25-47) % [place] % (Auto) 5.8 (1-9) % Eos % (Auto) 0.4 (0-6) % Baso % (Auto) 0.2 (0-2) % Absolute Neuts (auto) 8.3 H (1.5-7.7) 10^3/ul Absolute Lymphs (auto) 3.3 (1.0-4.8) 10^3/ul Absolute Monos (auto) 0.7 (0-0.8) 10^3/ul Absolute Eos (auto) 0.1 (0-0.6) 10^3/ul Absolute Basos (auto) 0 (0-0.2) 10^3/ul Absolute Nucleated RBC 0 10^3/ul Nucleated RBC % 0 Sodium 139 (133-145) mmol/L Potassium 3.5 (3.5-5.0) mmol/L Chloride 105 (101-111) mmol/L Carbon Dioxide 25 (22-32) mmol/L Anion Gap 9 (2-11) mmol/L BUN 14 (6-24) mg/dL Creatinine 1.25 H (0.67-1.17) mg/dL Est GFR ( Amer) 94.7 (>60) Est GFR (Non-Af Amer) 73.6 (>60) BUN/Creatinine Ratio 11.2 (8-20) Glucose 124 H (70-100) mg/dL Calcium 9.9 (8.6-10.3) mg/dL Total Bilirubin 0.50 (0.2-1.0) mg/dL AST 57 H (13-39) U/L ALT 70 H (7-52) U/L Alkaline Phosphatase 71 (34-104) U/L Total Protein 7.7 (6.4-8.9) g/dL Albumin 5.0 (3.2-5.2) g/dL Globulin 2.7 (2-4) g/dL Albumin/Globulin Ratio 1.9 (1-3) TSH 2.50 (0.34-5.60) mcIU/mL Urine Color Yellow Urine Appearance Clear Urine pH 5.0 (5-9) Ur Specific [place] 1.030 (1.010-1.030) Urine Protein Negative (Negative) Urine Ketones Negative (Negative) Urine Blood Negative (Negative) Urine Nitrate Negative (Negative) Urine Bilirubin Negative (Negative) Urine Urobilinogen Negative (Negative) Ur Leukocyte Esterase Negative (Negative) Urine Glucose Negative (Negative) Salicylates < 2.50 (<30) mg/dL Urine Opiates Screen (None Detect) Acetaminophen < 15 mcg/mL Ur Barbiturates Screen (None Detect) Ur Phencyclidine Scrn (None Detect) Ur Amphetamines Screen (None Detect) U Benzodiazepines Scrn (None Detect) Urine Cocaine Screen (None Detect) U Cannabinoids Screen (None Detect) Serum Alcohol < 10 (<10) mg/dL 09/10/16 Range/Units 01:30 WBC (3.5-10.8) 10^3/ul RBC (4.0-5.4) 10^6/ul Hgb (14.0-18.0) g/dl Hct (42-52) % MCV (80-94) fL MCH (27-31) pg MCHC (31-36) g/dl RDW (10.5-15) % Plt Count (150-450) 10^3/ul MPV (7.4-10.4) um3 Neut % (Auto) (38-83) % Lymph % (Auto) (25-47) % [place] % (Auto) (1-9) % Eos % (Auto) (0-6) % Baso % (Auto) (0-2) % Absolute Neuts (auto) (1.5-7.7) 10^3/ul Absolute Lymphs (auto) (1.0-4.8) 10^3/ul Absolute Monos (auto) (0-0.8) 10^3/ul Absolute Eos (auto) (0-0.6) 10^3/ul Absolute Basos (auto) (0-0.2) 10^3/ul Absolute Nucleated RBC 10^3/ul Nucleated RBC % Sodium (133-145) mmol/L Potassium (3.5-5.0) mmol/L Chloride (101-111) mmol/L Carbon Dioxide (22-32) mmol/L Anion Gap (2-11) mmol/L BUN (6-24) mg/dL Creatinine (0.67-1.17) mg/dL Est GFR ( Amer) (>60) Est GFR (Non-Af Amer) (>60) BUN/Creatinine Ratio (8-20) Glucose (70-100) mg/dL Calcium (8.6-10.3) mg/dL Total Bilirubin (0.2-1.0) mg/dL AST (13-39) U/L ALT (7-52) U/L Alkaline Phosphatase (34-104) U/L Total Protein (6.4-8.9) g/dL Albumin (3.2-5.2) g/dL Globulin (2-4) g/dL Albumin/Globulin Ratio (1-3) TSH (0.34-5.60) mcIU/mL Urine Color Urine Appearance Urine pH (5-9) Ur Specific [place] (1.010-1.030) Urine Protein (Negative) Urine Ketones (Negative) Urine Blood (Negative) Urine Nitrate (Negative) Urine Bilirubin (Negative) Urine Urobilinogen (Negative) Ur Leukocyte Esterase (Negative) Urine Glucose (Negative) Salicylates (<30) mg/dL Urine Opiates Screen None detected (None Detect) Acetaminophen mcg/mL Ur Barbiturates Screen None detected (None Detect) Ur Phencyclidine Scrn None detected (None Detect) Ur Amphetamines Screen None detected (None Detect) U Benzodiazepines Scrn None detected (None Detect) Urine Cocaine Screen None detected (None Detect) U Cannabinoids Screen None detected (None Detect) Serum Alcohol (<10) mg/dL Result Diagrams: 09/10/16 01:30 09/10/16 01:30 Lab Statement: Any lab studies that have been ordered have been reviewed, and results considered in the medical decision making process. Course/Dx - Differential Dx/Clinical Impression Differential Diagnosis/HQI/PQRI: Positive: Anxiety, Bipolar Disorder, Depression , Homicidal Ideation, Suicidal Ideation Provider Diagnosis: Homicidal ideation Discharge - Discharge Plan Condition: Stable Disposition: ADMITTED TO [facility] documentation as recorded by the Doctor farmer Tahera accurately reflects the service I personally performed and the decisions made by me, Jewell Marshall MD.
[2016-09-15] MEDS: Divalproex ER TAB(*) 500 MG PO SCH (20:22)
[2016-09-16] MEDS: Ziprasidone * 20 MG CAP (generic Geodon) PO SCH (09:07)
[2016-09-16] MEDS: Vitamin THERAPEUTIC TAB PO SCH (09:07)
--- NOTE | 2016-09-16 14:09 | PN ---
MHU: Group Therapy Note - Service Type Service Type: [id number] Group Psychotherapy - Cognitive Behavioral Group Therapy ( CBT):Patient was attentive and participatory in CBT programming this morning, and remained in good behavioral control. Patient expressed positive insights regarding relevant treatment interventions and goals.
--- NOTE | 2016-09-16 15:10 | PN ---
Subjective - Subjective Service Type: [id number] Hosp care 15 min low complexity Subjective: Lore continues to report stable mood without psychosis or dangerous intent or plan. He asks how we will determine he is ready for discharge. He requests a change in his antipsychotic medication, and agrees to Zyprexa instead of Geodon after reviewing with me the likely benefit of greater efficacy against psychotic symptoms as against continued side effect liablity toward metabolic syndrome of increased risk of diabetes, dyslipidemia and weight gain, similar to Geodon but with indications in the medical literature of higher risk of these than Geodon. He voiced understanding and acceptance of the risks for likely benefits. Objective - Appearance Appearance: Healthy Appearing Dysmorphic Features: No Hygiene: Normal Grooming: Well Kept - Behavior Psychomotor Activities: Normal Exhibits Abnormal Movement: No - Attitude and Relatedness Attitude and Relatedness: Cooperative Eye Contact: Good - Speech Quality: Unpressured Latencies: Normal Quantity: Appropriate - Mood Patient's Decription of Mood: "Like I said, I'm really good with the medications." - Affect Observed Affect: Fair Affect Consistent with: Euthymia - Thought Process Patient's Thought Process: Coherent, Goal Directed Thought Content: No Passive Wish, No Suicidal Planning, No Homicidal Ideation, No Paranoid Ideation - Sensorium Experiencing Hallucinations: No, Sensorium is Clear Type of Hallucinations: Visual: No, Auditory: No, Command: No - Level of Consciousness Level of Consciousness: Alert Orientation: Yes Intact, Yes Orientated to Time, Yes Orientated to Place, Yes Orientated to Person - Impulse Control Impulse Control: Intact - Insight and Judgement Insight and Judgement: Fair - Group Participation Particating in Group Activities: No - Medication Management Medication Management Adherence: Yes Assessment - Assessment Merits Inpatient Hospitalization: For Stabilization, Consolidate Improvements, For Discharge Planning Inpatient DSM-IV Dx: 1. Attention deficit hyperactivity disorder by history. 2. Cluster B traits. 3. Rule out mood disorder. 4. History of diagnosis with oppositional defiant disorder. Clinical Impression: Lore Simpson is a 21-year-old father of a [id number] son, who has been admitted due to concern about expression of homicidal ideation toward his family. He had been seeking to be jailed for auto theft, but was unsuccessful in that endeavor. He had been off his medications and this is a likely cause of his behavioral disorganization. He states that he is feeling more stable now that he has had a single dose of Geodon. We will be encouraging him to make use of the therapeutic milieu and groups. We will be gathering collateral from [facility], his mother, the mother of his son, and her mother. He reports that these latter two have told him that they would like him to come home. His mother has expressed concern for her family's safety given his recent threats. This will be the le target symptom prior to discharge, stable remission of threatening behavior and verbal threats and any thoughts to harm others. 4.22.17: Today Lore asks that we consolidate his Geodon to a single 80 mg dose at bedtime. He reports all is well for discharge to the home of his girlfriend and her mother. His mother is concerned for her and her family's safety given Lore's menacing behavior prior to admission. 4.23.17: Lore reports that he would like a meeting with his family to discuss their fears and concerns. He denies any active psychotic or other psychiatric symptoms. 4.24.17 Lore agrees to trial of Depakote against mood lability and impulsive anger. Will arrange for family meeting. 4.25.17 Lore complains of oversedation on Depakote. He is med and group compliant with no physical or psychiatric complaints. 4.26.17 Lore is alert and social on the milieu, but continues to report oversedation on current medications. He is seeking discharge and an understanding of discharge criteria. Family meeting tomorrow at 3 will help clarify safety issues needing resolution prior to discharge. Plan - Plan Treatment Plan: Name: LORE SIMPSON Birthdate: 1995 [id number] Continue Depakote and replace Geodon with Zyprexa. Family meeting with Lore and his parents . Monitor MS and safety. Encourage groups and milieu. Medications: Current Medications Acetaminophen (Tylenol Tab*) 650 mg PO Q4H PRN PRN Reason: for pain; or Temp >101 F Al Hydrox/Mg Hydrox/Simethicone (Maalox Plus*) 30 ml PO Q4H PRN PRN Reason: INDIGESTION Divalproex Sodium (Depakote Er Tab(*)) 1,000 mg PO BEDTIME [facility] Last Admin: 09/15/16 20:22 Dose: 1,000 mg Hydroxyzine HCl (Atarax Tab*) 50 mg PO Q4H PRN PRN Reason: ANXIETY/INSOMNIA Last Admin: 09/15/16 20:23 Dose: 50 mg Multivitamins (Theragran Tab*) 1 tab PO DAILY [facility] Last Admin: 09/16/16 09:07 Dose: 1 tab Nicotine (Nicotine Inhaler*) 10 mg INH Q2H PRN PRN Reason: CRAVING Last Admin: 09/15/16 09:35 Dose: 10 mg Ziprasidone (Geodon (Generic) *) 40 mg PO 0800,1700 [facility] Last Admin: 09/16/16 09:07 Dose: 40 mg - Discharge Plan Discharge Plan: Outpatient Follow Up
[2016-09-16] MEDS: hydrOXYzine HCL TAB* 50 MG PO PRN (17:49)
[2016-09-16] MEDS: Divalproex ER TAB(*) 500 MG PO SCH (20:28)
[2016-09-16] MEDS: OLANzapine TAB*ODT* 10 MG TAB PO SCH (20:28)
[2016-09-17] MEDS: Vitamin THERAPEUTIC TAB PO SCH (09:01)
[2016-09-17] MEDS: Divalproex ER TAB(*) 500 MG PO SCH (20:24)
[2016-09-17] MEDS: OLANzapine TAB*ODT* 10 MG TAB PO SCH (20:24)
[2016-09-17] MEDS: hydrOXYzine HCL TAB* 50 MG PO PRN (20:25)
[2016-09-18] MEDS: Vitamin THERAPEUTIC TAB PO SCH ×2 (09:10→09:11)
--- NOTE | 2016-09-18 14:53 | PN ---
MHU: Group Therapy Note - Service Type Service Type: [id number] Group Psychotherapy - Cognitive Behavioral Group Therapy ( CBT):Patient was attentive and participatory in CBT programming this morning, and remained in good behavioral control. Patient expressed positive insights regarding relevant treatment interventions and goals.
--- NOTE | 2016-09-18 18:09 | PN ---
Subjective - Subjective Service Type: 46493 Hosp care 15 min low complexity Subjective: Lore reports less sedation from meds today, feeling like the current level is fine. He has no physical complaints. He will meet with ACT intake here next week. He has no active psychiatric complaints. Objective - Appearance Appearance: Healthy Appearing Dysmorphic Features: No Hygiene: Normal Grooming: Well Kept - Behavior Psychomotor Activities: Normal Exhibits Abnormal Movement: No - Attitude and Relatedness Attitude and Relatedness: Cooperative Eye Contact: Fair - Speech Quality: Unpressured Latencies: Normal Quantity: Appropriate - Mood Patient's Decription of Mood: "Calm" - Affect Observed Affect: Fair Affect Consistent with: Euthymia - Thought Process Patient's Thought Process: Coherent, Goal Directed Thought Content: No Passive Wish, No Suicidal Planning, No Homicidal Ideation, No Paranoid Ideation - Sensorium Experiencing Hallucinations: No, Sensorium is Clear Type of Hallucinations: Visual: No, Auditory: No, Command: No - Level of Consciousness Level of Consciousness: Alert Orientation: Yes Intact, Yes Orientated to Time, Yes Orientated to Place, Yes Orientated to Person - Impulse Control Impulse Control: Intact - Insight and Judgement Insight and Judgement: Poor - Group Participation Particating in Group Activities: Yes Group Participation Comments: some - Medication Management Medication Management Adherence: Yes Assessment - Assessment Merits Inpatient Hospitalization: For Stabilization, Consolidate Improvements, For Discharge Planning Inpatient DSM-IV Dx: Bipolar Affective Disorder. Cluster B traits. History of diagnosis with oppositional defiant disorder. Attention deficit hyperactivity disorder by history. Clinical Impression: Lore Simpson is a 21-year-old father of a [id number] son, who has been admitted due to concern about expression of homicidal ideation toward his family. He had been seeking to be jailed for auto theft, but was unsuccessful in that endeavor. He had been off his medications and this is a likely cause of his behavioral disorganization. He states that he is feeling more stable now that he has had a single dose of Geodon. We will be encouraging him to make use of the therapeutic milieu and groups. We will be gathering collateral from [facility], his mother, the mother of his son, and her mother. He reports that these latter two have told him that they would like him to come home. His mother has expressed concern for her family's safety given his recent threats. This will be the le target symptom prior to discharge, stable remission of threatening behavior and verbal threats and any thoughts to harm others. 4..17: Today Lore asks that we consolidate his Geodon to a single 80 mg dose at bedtime. He reports all is well for discharge to the home of his girlfriend and her mother. His mother is concerned for her and her family's safety given Lore's menacing behavior prior to admission. 4.17: Lore reports that he would like a meeting with his family to discuss their fears and concerns. He denies any active psychotic or other psychiatric symptoms. 4..17 Lore agrees to trial of Depakote against mood lability and impulsive anger. Will arrange for family meeting. 4..17 Lore complains of oversedation on Depakote. He is med and group compliant with no physical or psychiatric complaints. 4..17 Lore is alert and social on the milieu, but continues to report oversedation on current medications. He is seeking discharge and an understanding of discharge criteria. Family meeting tomorrow at 3 will help clarify safety issues needing resolution prior to discharge. 4.28.17 Lore reports meds are now tolerable, with minimal sedation. He has remained in good behavioral control. He agrees with plan to arrange for ACT follow up. Family is afraid of him, and he has agreed to move to [place] with the mother of his child for the sake of putting a safe distance between himself and his family. Plan - Plan Treatment Plan: Name: LORE SIMPSON Birthdate: 1995 [id number] Continue Depakote and Zyprexa, now well tolerated with minimal sedation. Monitor MS and safety. Encourage groups and milieu. ACT intake pending. Medications: Current Medications Acetaminophen (Tylenol Tab*) 650 mg PO Q4H PRN PRN Reason: for pain; or Temp >101 F Al Hydrox/Mg Hydrox/Simethicone (Maalox Plus*) 30 ml PO Q4H PRN PRN Reason: INDIGESTION Divalproex Sodium (Depakote Er Tab(*)) 1,000 mg PO BEDTIME CASS Last Admin: 09/17/16 20:24 Dose: 1,000 mg Hydroxyzine HCl (Atarax Tab*) 50 mg PO Q4H PRN PRN Reason: ANXIETY/INSOMNIA Last Admin: 09/17/16 20:25 Dose: 50 mg Multivitamins (Theragran Tab*) 1 tab PO DAILY CASS Last Admin: 09/18/16 09:11 Dose: 1 tab Nicotine (Nicotine Inhaler*) 10 mg INH Q2H PRN PRN Reason: CRAVING Last Admin: 09/15/16 09:35 Dose: 10 mg Olanzapine (Zyprexa *Odt*) 10 mg PO BEDTIME [facility] Last Admin: 09/17/16 20:24 Dose: 10 mg - Discharge Plan Discharge Plan: Outpatient Follow Up - ACT
[2016-09-18] MEDS: hydrOXYzine HCL TAB* 50 MG PO PRN (20:32)
[2016-09-18] MEDS: Divalproex ER TAB(*) 500 MG PO SCH (20:32)
[2016-09-18] MEDS: OLANzapine TAB*ODT* 10 MG TAB PO SCH (20:32)
[2016-09-19] MEDS: Vitamin THERAPEUTIC TAB PO SCH (10:08)
[2016-09-19] MEDS: Divalproex ER TAB(*) 500 MG PO SCH (20:32)
[2016-09-19] MEDS: OLANzapine TAB*ODT* 10 MG TAB PO SCH (20:33)
[2016-09-19] MEDS: hydrOXYzine HCL TAB* 50 MG PO PRN (20:34)
[2016-09-20] MEDS: Vitamin THERAPEUTIC TAB PO SCH (09:45)
[2016-09-20] MEDS: Nicotine Inhaler* 10 MG AMP INH PRN (15:43)
[2016-09-20] MEDS ORDERED: Mouth Piece, Nicotine* 1 EACH CARTRIDGE ONE (15:43)
[2016-09-20] MEDS: hydrOXYzine HCL TAB* 50 MG PO PRN (20:19)
[2016-09-20] MEDS: Divalproex ER TAB(*) 500 MG PO SCH (20:19)
[2016-09-20] MEDS: OLANzapine TAB*ODT* 10 MG TAB PO SCH (20:20)
[2016-09-21] MEDS: Vitamin THERAPEUTIC TAB PO SCH (09:06)
--- NOTE | 2016-09-21 11:40 | PN ---
MHU: Group Therapy Note - Service Type Service Type: [id number] Group Psychotherapy - Cognitive Behavioral Group Therapy ( CBT):Patient was attentive and participatory in CBT programming this morning, and remained in good behavioral control. Patient expressed positive insights regarding relevant treatment interventions and goals.
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
[2016-09-21] MEDS: Nicotine Inhaler* 10 MG AMP INH PRN (18:51)
[2016-09-21] MEDS: Divalproex ER TAB(*) 500 MG PO SCH (21:44)
[2016-09-21] MEDS: OLANzapine TAB*ODT* 10 MG TAB PO SCH (21:44)
[2016-09-21] MEDS: hydrOXYzine HCL TAB* 50 MG PO PRN (21:44)
[2016-09-22] MEDS: Vitamin THERAPEUTIC TAB PO SCH (09:49)
[2016-09-22] MEDS: Divalproex ER TAB(*) 500 MG PO SCH (20:16)
[2016-09-22] MEDS: hydrOXYzine HCL TAB* 50 MG PO PRN (20:16)
[2016-09-22] MEDS: OLANzapine TAB*ODT* 10 MG TAB PO SCH (20:17)
[2016-09-23 07:59] LABS: Mean Platelet Volume 8 um3 (7.4-10.4)
[2016-09-23 08:29] LABS: HDL Cholesterol 37.8 mg/dL
[2016-09-23] MEDS: Vitamin THERAPEUTIC TAB PO SCH (09:23)
--- NOTE | 2016-09-23 11:40 | PN ---
MHU: Group Therapy Note - Service Type Service Type: [id number] Group Psychotherapy - Cognitive Behavioral Group Therapy ( CBT):Patient was attentive and participatory in CBT programming this morning, and remained in good behavioral control. Patient expressed positive insights regarding relevant treatment interventions and goals.
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
[2016-09-23] MEDS: Divalproex ER TAB(*) 500 MG PO SCH (20:40)
[2016-09-23] MEDS: hydrOXYzine HCL TAB* 50 MG PO PRN (20:40)
[2016-09-23] MEDS: OLANzapine TAB*ODT* 10 MG TAB PO SCH (20:40)
[2016-09-24] MEDS: Vitamin THERAPEUTIC TAB PO SCH (10:57)
[2016-09-24] MEDS: OLANzapine TAB*ODT* 10 MG TAB PO SCH (20:30)
[2016-09-24] MEDS: Divalproex ER TAB(*) 500 MG PO SCH (20:30)
[2016-09-24] MEDS: hydrOXYzine HCL TAB* 50 MG PO PRN (20:32)
[2016-09-25] MEDS: Vitamin THERAPEUTIC TAB PO SCH (09:10)
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
[2016-09-25] MEDS: hydrOXYzine HCL TAB* 50 MG PO PRN (20:29)
[2016-09-25] MEDS: Divalproex ER TAB(*) 500 MG PO SCH (20:29)
[2016-09-25] MEDS: OLANzapine TAB*ODT* 10 MG TAB PO SCH (20:29)
[2016-09-26] MEDS: Vitamin THERAPEUTIC TAB PO SCH (09:50)
[2016-09-26] MEDS: OLANzapine TAB*ODT* 10 MG TAB PO SCH (20:21)
[2016-09-26] MEDS: Divalproex ER TAB(*) 500 MG PO SCH (20:21)
[2016-09-27] MEDS: Vitamin THERAPEUTIC TAB PO SCH (09:31)
[2016-09-27] MEDS: Divalproex ER TAB(*) 500 MG PO SCH (20:37)
[2016-09-27] MEDS: OLANzapine TAB*ODT* 10 MG TAB PO SCH (20:37)
[2016-09-28 07:58] VITALS: BP 120/73
[2016-09-28] MEDS: Vitamin THERAPEUTIC TAB PO SCH (09:14)
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
== END 2016-09-28 10:00 | disposition home or self-care (01) | DRG 753 ==
LOC: ED 00:27 → BSU 07:05
PROVIDERS: ADMIT Psychiatry & Neurology Psychiatry; ATTEND Psychiatry & Neurology Psychiatry
PROC: GZHZZZZ Group Psychotherapy (ICD-10-PCS; principal; 2016-09-14)
PROC: GZ58ZZZ Individual Psychotherapy, Cognitive-Behavioral (ICD-10-PCS; 2016-09-14)
DX: F31.9 Bipolar disorder, unspecified (principal); I10 Essential (primary) hypertension; F90.9 Attention-deficit hyperactivity disorder, unspecified type; F91.3 Oppositional defiant disorder; Z62.821 Parent-adopted child conflict; R45.1 Restlessness and agitation; F17.210 Nicotine dependence, cigarettes, uncomplicated; R41.83 Borderline intellectual functioning; Z81.8 Family history of other mental and behavioral disorders; Z63.9 Problem related to primary support group, unspecified; Z59.9 Problem related to housing and economic circumstances, unspecified
CPT/HCPCS: 36415; 80053; 80061; 80164; 80307; 80320; 80329; 81003; 82947; 84443; 84450; 84460; 85025; 85049; 90853; 99222; 99231; 99238; 99406; A9270-GY; G0480

== ENCOUNTER 2017-01-05 13:22 | Emergency (ER) | payer BC, MEDICAID ==
[2017-01-05 13:40] VITALS: BP 152/85
--- NOTE | 2017-01-05 14:38 | UC ---
Roosevelt Pearce Angela, scribed for Iam Grossman MD on 01/05/17 at 1415 . Respiratory Complaint HPI - HPI Summary HPI Summary: This pt is 21 y/o male presenting to [facility] c/o cough x3 days. Pt reports associated SOB, wheezing, sore throat, rhinorrhea, hoarse voice, and vomiting secondary to cough. Pt denies nasal congestion and hx of asthma. He notes he is a current smoker but denies alcohol use. He denies any drug allergies. - History of Current Complaint Chief Complaint: UCRespiratory Stated Complaint: SORE THROAT VOMITING COUGH Time Seen by Provider: 01/05/17 14:02 Hx Obtained From: Patient Onset/Duration: Lasting Days Timing: Constant Character: Cough: Productive - with clear sputum. Aggravating Factors: Nothing Alleviating Factors: Nothing Associated Signs And Symptoms: Positive: Chills, Wheezing, Hoarseness, Sinus Discomfort. Negative: Hemoptysis, Calf Pain, Calf Swelling, Nasal Congestion - Allergies/Home Medications Allergies/Adverse Reactions: Allergies Allergy/AdvReac Type Severity Reaction Status Date / Time No Known Allergies Allergy Verified 09/27/16 12:10 PMH/Surg Hx/FS Hx/Imm Hx - Surgical History Surgical History: Yes Surgery Procedure, Year, and Place: tonsils - Family History Known Family History: Positive: None, Other Family History: Depression and eating disorder in twin sister. Half-sister with history of conduct problems. - Social History Alcohol Use: None Alcohol Amount: NOT IN 3-4 MONTHS Substance Use Type: None Substance Use Comment - Amount & Last Used: Pt denies at this time. Smoking Status (MU): Heavy Every Day Tobacco Smoker Type: Cigarettes Amount Used/How Often: 1/2 ppd Have You Smoked in the Last Year: Yes Household Exposure Type: Cigarettes - Immunization History Most Recent Influenza Vaccination: 2016/2017 Most Recent Tetanus Shot: Unknown Most Recent Pneumonia Vaccination: uncertain Review of Systems Constitutional: Negative Skin: Negative Eyes: Negative ENT: Sore Throat, Nasal Discharge Respiratory: Shortness Of Breath, Cough Gastrointestinal: Vomiting - secondary to cough Genitourinary: Negative Neurovascular: Negative Neurological: Negative All Other Systems Reviewed And Are Negative: Yes Physical Exam Triage Information Reviewed: Yes Vital Signs: Initial Vital Signs Temp 100.1 F 01/05/17 13:37 Pulse 104 01/05/17 13:37 Resp 16 01/05/17 13:37 BP 152/85 01/05/17 13:37 Pulse Ox 96 01/05/17 13:37 Vital Signs Reviewed: Yes - Additional Comments The patient is well-nourished in no acute distress and in no acute pain. The skin is warm and dry and skin color reflects adequate perfusion. HEENT: The head is normocephalic and atraumatic. The pupils are equal and reactive. The conjunctivae are clear and without drainage. Nares are patent and without drainage. Mouth reveals moist mucous membranes. There is erythema on posterior pharynx without exudates. The tonsils are not enlarged. The external ears are intact. The ear canals are patent and without drainage. The tympanic membranes are intact. Neck is supple with full range of motion and non-tender. Respiratory: Chest is non-tender. There is diffuse wheezing and rhonchi on chest. Cardiovascular: Hear is regular rate and rhythm. There is no murmur or rub auscultated. There is no peripheral edema and pulses are symmetrical and equal. Abdomen: The abdomen is soft and non-tender. Musculoskeletal: There is no back pain noted. Extremities are non-tender with full range of motion. There is good capillary refill. Neurological: Patient is alert and oriented to person, place and time. The patient has symmetrical motor strength in all four extremities. Psychiatric: The patient has an appropriate affect and does not exhibit any anxiety or depression. Diagnostic Evaluation - Laboratory O2 Sat by Pulse Oximetry: 96 Respiratory Course/Dx - Differential Dx/Diagnosis Differential Diagnosis/HQI/PQRI: Asthma, Bronchitis, Lower Resp Infection, Other - uri Provider Diagnoses: Asthmatic Bronchitis. Elevated BP Discharge - Discharge Plan Condition: Stable Disposition: HOME Prescriptions: Albuterol HFA INHALER* [Ventolin HFA Inhaler*] 1 - 2 puff INH Q6H PRN #1 mdi PRN Reason: wheezing Azithromycin TAB* [Zithromax TAB (Z-MUSTAPHA) 250 mg #6 tabs] 2 tab PO .TODAY, THEN 1 DAILY #1 mustapha guaiFENesin/CODIEN 100MG-10MG* [Robitussin AC 100Mg-10Mg*] 10 ml PO Q4H PRN # 120 udc MDD 40 ml PRN Reason: cough predniSONE TAB* [Deltasone TAB*] 60 mg PO DAILY #15 tab Patient Education Materials: Wheezing (ED), Asthma (ED), Acute Bronchitis (ED) Referrals: Al Pascual MD [Primary Care Provider] - Additional Instructions: Your blood pressure was elevated during your visit today. Please follow up with your primary care provider for a blood pressure reading and to assure your symptoms are improving. The documentation as recorded by the Roosevelt farmer Angela accurately reflects the service I personally performed and the decisions made by me, Iam Grossman MD.
== END 2017-01-05 14:29 | disposition home or self-care (01) ==
LOC: UCEAST 13:22
DX: J45.909 Unspecified asthma, uncomplicated (principal); R03.0 Elevated blood-pressure reading, without diagnosis of hypertension; F17.210 Nicotine dependence, cigarettes, uncomplicated
CPT/HCPCS: 99212; G0463

== ENCOUNTER 2017-05-05 19:16 | Emergency (ER) | payer BC, MEDICAID ==
[2017-05-05 20:14] LABS: ABS Basophils 0.1 10^3/ul (0-0.2); ABS Eosinophils 0 10^3/ul (0-0.6); ABS Lymphocytes 2.5 10^3/ul (1.0-4.8); ABS Monocytes 0.6 10^3/ul (0-0.8); ABS Neutrophils 5.1 10^3/ul (1.5-7.7); ABS Nucleated RBC 0.01 10^3/ul; Eosinophil % 0.4 % (0-6); Hematocrit 48 % (42-52); Hemoglobin 16.5 g/dl (14.0-18.0); Lymphocyte % 30.6 % (25-47); Mean Corpuscular HGB Conc 34 g/dl (31-36); Mean Corpuscular Hemoglobin 29 pg (27-31); Mean Corpuscular Volume 85 fL (80-94); Mean Platelet Volume 8 um3 (7.4-10.4); Nucleated Red Blood Cells % 0.1; Platelet Count 316 10^3/ul (150-450); Red Blood Count 5.63 10^6/ul (4.0-5.4); Red Cell Distribution Width 14 % (10.5-15); White Blood Count 8.3 10^3/ul (3.5-10.8)
[2017-05-05 23:04] LABS: Urine Appearance Clear; Urine Blood Negative (Negative); Urine Color Yellow; Urine Ketones Negative (Negative); Urine Protein Negative (Negative); Urine Specific Gravity 1.024 (1.010-1.030); Urine Urobilinogen Negative (Negative)
[2017-05-06 01:49] VITALS: BP 142/68
--- NOTE | 2017-05-17 02:56 | ED ---
Juliet Pearce Gabriel, scribed for Adilia Sandoval MD on 05/05/17 at 1942 . Psychiatric Complaint - HPI Summary HPI Summary: This patient is a 22 year old M presenting to [facility] with a chief complaint of anxiety and depression since 3 weeks ago. Pt denies SI. Patient reports that he has been taking 8 caffeine pills a day and does not even sleep some nights. He also took some xanax a few weeks ago. Patient [facility]. - History Of Current Complaint Chief Complaint: EDMentalHealth Time Seen by Provider: 05/05/17 19:34 Hx Obtained From: Patient Onset/Duration: Lasting Weeks - 3, Still Present Timing: Constant Severity Initially: Mild Severity Currently: Mild Character: Depressed, Anxious Aggravating Factor(s): Recent Stress Has Suicidal: Denies: Thoughts - Allergies/Home Medications Allergies/Adverse Reactions: Allergies Allergy/AdvReac Type Severity Reaction Status Date / Time No Known Allergies Allergy Verified 04/01/17 15:43 PMH/Surg Hx/FS Hx/Imm Hx Previously Healthy: No Endocrine/Hematology History: Denies: Hx Diabetes, Hx Thyroid Disease Cardiovascular History: Reports: Hx Hypertension Respiratory History: Denies: Hx Asthma, Hx Chronic Obstructive Pulmonary Disease (COPD) GI History: Denies: Hx Gastroesophageal Reflux Disease, Hx Ulcer Sensory History: Denies: Hx Contacts or Glasses, Hx Hearing Aid Opthamlomology History: Denies: Hx Contacts or Glasses Neurological History: Denies: Hx Headaches Psychiatric History: Reports: Hx Attention Deficit Hyperactivity Disorder, Hx Inpatient Treatment, Hx Community Mental Health Tx, Hx Bipolar Disorder, Hx of Violent Episodes Against Others Denies: Hx Eating Disorder, Hx Depression - Surgical History Surgery Procedure, Year, and Place: tonsils Infectious Disease History: No Infectious Disease History: Denies: Hx Clostridium Difficile, Hx Hepatitis, Hx Human Immunodeficiency Virus (HIV), Hx of Known/Suspected MRSA, Hx Shingles, Hx Tuberculosis, Hx Known/ Suspected VRE, Hx Known/Suspected VRSA, History Other Infectious Disease, Traveled Outside the [place] in Last 30 Days - Family History Known Family History: Positive: Hypertension, Other Family History: Depression and eating disorder in twin sister. Half-sister with history of conduct problems. - Social History Alcohol Use: Rare Alcohol Amount: NOT IN 3-4 MONTHS Substance Use Type: Reports: Other Substance Use Comment - Amount & Last Used: xanax Hx Tobacco Use: Yes Smoking Status (MU): Heavy Every Day Tobacco Smoker Type: Cigarettes Amount Used/How Often: 1/2 ppd Have You Smoked in the Last Year: Yes Review of Systems Negative: Fever Psychological: Other - NEGATIVE: SI Positive: Anxious, Depressed All Other Systems Reviewed And Are Negative: Yes Physical Exam - Summary Physical Exam Summary: VITAL SIGNS: Reviewed. GENERAL: ~Patient is a well-developed and nourished male who is lying comfortable in the stretcher. Patient appears somewhat anxious HEAD AND FACE: No signs of trauma. No ecchymosis, hematomas or skull depressions. No sinus tenderness. EYES: PERRLA, EOMI x 2, No injected conjunctiva, no nystagmus. EARS: Hearing grossly intact. Ear canals and tympanic membranes are within normal limits. MOUTH: Oropharynx within normal limits. NECK: Supple, trachea is midline, no adenopathy, no JVD, no carotid bruit, no c- spine tenderness, neck with full ROM. CHEST: Symmetric, no tenderness at palpation LUNGS: Clear to auscultation bilaterally. No wheezing or crackles. CVS: Regular rate and rhythm, S1 and S2 present, no murmurs or gallops appreciated. ABDOMEN: Soft, non-tender. No signs of distention. No rebound no guarding, and no masses palpated. Bowel sounds are normal. EXTREMITIES: FROM in all major joints, no edema, no cyanosis or clubbing. NEURO: Alert and oriented x 3. No acute neurological deficits. Speech is normal and follows commands. SKIN: Dry and warm Triage Information Reviewed: Yes Vital Signs On Initial Exam: Initial Vitals Temp Pulse Resp BP Pulse Ox 97.5 F 102 16 142/90 96 05/05/17 19:26 05/05/17 19:26 05/05/17 19:26 05/05/17 19:26 05/05/17 19:26 Vital Signs Reviewed: Yes - Meir Coma Scale Coma Scale Total: 15 Diagnostics - Vital Signs Vital Signs Temp Pulse Resp BP Pulse Ox 05/05/17 19:26 97.5 F 102 16 142/90 96 - Laboratory Result Diagrams: 05/05/17 20:05 05/05/17 20:05 Lab Statement: Any lab studies that have been ordered have been reviewed, and results considered in the medical decision making process. Course/Dx - Course Assessment/Plan: Patient has been medically cleared and will undergo evaluation from a psychiatrist. After an evaluation the patient will be discharged home with a diagnoses of depression. - Differential Dx/Clinical Impression Provider Diagnosis: Depression Discharge - Discharge Plan Condition: Stable Disposition: HOME Patient Education Materials: Depression (ED) Referrals: Al Pascual MD [Primary Care Provider] - The documentation as recorded by the Juliet farmer Gabriel accurately reflects the service I personally performed and the decisions made by Lori caceres Abdul, MD.
== END 2017-05-06 02:00 | disposition home or self-care (01) ==
LOC: ED 19:16
DX: F32.9 Major depressive disorder, single episode, unspecified (principal); F43.9 Reaction to severe stress, unspecified; F17.210 Nicotine dependence, cigarettes, uncomplicated
CPT/HCPCS: 36415; 80053; 80164; 80307; 80320; 80329; 81003; 81015; 84443; 85025; 87086; 99285; G0480

== ENCOUNTER 2017-10-20 20:38 | Emergency (ER) | payer BC, MEDICAID ==
[2017-10-20 23:08] LABS: ABS Basophils 0.1 10^3/ul (0-0.2); ABS Eosinophils 0.1 10^3/ul (0-0.6); ABS Lymphocytes 2.7 10^3/ul (1.0-4.8); ABS Monocytes 0.7 10^3/ul (0-0.8); ABS Neutrophils 5.8 10^3/ul (1.5-7.7); ABS Nucleated RBC 0 10^3/ul; Eosinophil % 1.2 % (0-6); Hematocrit 48 % (42-52); Hemoglobin 16.2 g/dl (14.0-18.0); Lymphocyte % 28.4 % (25-47); Mean Corpuscular HGB Conc 34 g/dl (31-36); Mean Corpuscular Hemoglobin 29 pg (27-31); Mean Corpuscular Volume 87 fL (80-94); Mean Platelet Volume 7.7 um3 (7.4-10.4); Nucleated Red Blood Cells % 0; Platelet Count 283 10^3/ul (150-450); Red Blood Count 5.51 10^6/ul (4.0-5.4); Red Cell Distribution Width 14 % (10.5-15); White Blood Count 9.4 10^3/ul (3.5-10.8)
[2017-10-20 23:25] LABS: EGFR Non-African American 81.9 (>60)
[2017-10-20 23:37] LABS: Urine Appearance Clear; Urine Blood Negative (Negative); Urine Color Yellow; Urine Ketones Negative (Negative); Urine Protein Negative (Negative); Urine Urobilinogen Negative (Negative)
--- NOTE | 2017-10-21 02:55 | ED ---
Siva Pearce Tiffany, scribed for Adilia Sandoval MD on 10/21/17 at 0012 . Psychiatric Complaint - HPI Summary HPI Summary: 22 y/o M [facility] complaining of increased anger since yesterday evening. Symptoms aggravated and alleviated by nothing. Pt voluntarily requests mental health evaluation because he and a friend recently got into a fight about pt seeing friend's girlfriend. Pt lives in a senior living, where staff recommended pt go to ED. Pt reports increased lack of sleep. Pt denies SI, HI. - History Of Current Complaint Chief Complaint: EDMentalHealth Time Seen by Provider: 10/20/17 23:45 Hx Obtained From: Patient Onset/Duration: Lasting Days - Yesterday evening, Still Present Aggravating Factor(s): Nothing Alleviating Factor(s): Nothing Has Suicidal: Denies: Thoughts Has Homicidal: Denies: Thoughts - Allergies/Home Medications Allergies/Adverse Reactions: Allergies Allergy/AdvReac Type Severity Reaction Status Date / Time No Known Allergies Allergy Verified 04/01/17 15:43 Home Medications: Home Medications Divalproex ER TAB(*) [Depakote ER TAB(*)] 1,000 mg PO BEDTIME 10/20/17 [History Confirmed 10/20/17] OLANzapine TAB* [Zyprexa 10 MG TAB*] 10 mg PO BEDTIME 10/20/17 [History Confirmed 10/20/17] hydrOXYzine HCL TAB* [Atarax 10 MG TAB*] 10 mg PO BEDTIME PRN 10/20/17 [History Confirmed 10/20/17] PMH/Surg Hx/FS Hx/Imm Hx Previously Healthy: No Endocrine/Hematology History: Denies: Hx Diabetes, Hx Thyroid Disease Cardiovascular History: Reports: Hx Hypertension Respiratory History: Denies: Hx Asthma, Hx Chronic Obstructive Pulmonary Disease (COPD) GI History: Denies: Hx Gastroesophageal Reflux Disease, Hx Ulcer Sensory History: Denies: Hx Contacts or Glasses, Hx Hearing Aid Opthamlomology History: Denies: Hx Contacts or Glasses Neurological History: Denies: Hx Headaches Psychiatric History: Reports: Hx Attention Deficit Hyperactivity Disorder, Hx Inpatient Treatment, Hx Community Mental Health Tx, Hx Bipolar Disorder, Hx of Violent Episodes Against Others Denies: Hx Eating Disorder, Hx Depression - Surgical History Surgery Procedure, Year, and Place: tonsils Infectious Disease History: No Infectious Disease History: Denies: Hx Clostridium Difficile, Hx Hepatitis, Hx Human Immunodeficiency Virus (HIV), Hx of Known/Suspected MRSA, Hx Shingles, Hx Tuberculosis, Hx Known/ Suspected VRE, Hx Known/Suspected VRSA, History Other Infectious Disease, Traveled Outside the [place] in Last 30 Days - Family History Known Family History: Positive: Hypertension Family History: Depression and eating disorder in twin sister. Half-sister with history of conduct problems. - Social History Lives: Detention Alcohol Use: Rare Alcohol Amount: NOT IN 3-4 MONTHS Hx Substance Use: Yes Substance Use Type: Reports: Other - xanax Hx Tobacco Use: Yes Smoking Status (MU): Heavy Every Day Tobacco Smoker Type: Cigarettes Amount Used/How Often: 1/2 ppd Have You Smoked in the Last Year: Yes Review of Systems Negative: Fever Positive: Other - Increased anger, increased lack of sleep; NEGATIVE: SI, HI All Other Systems Reviewed And Are Negative: Yes Physical Exam - Summary Physical Exam Summary: VITAL SIGNS: Reviewed. GENERAL: Patient is a well-developed and nourished male who is lying comfortable in the stretcher. Patient is not in any acute respiratory distress. HEAD AND FACE: No signs of trauma. No ecchymosis, hematomas or skull depressions. No sinus tenderness. EYES: PERRLA, EOMI x 2, No injected conjunctiva, no nystagmus. EARS: Hearing grossly intact. Ear canals and tympanic membranes are within normal limits. MOUTH: Oropharynx within normal limits. NECK: Supple, trachea is midline, no adenopathy, no JVD, no carotid bruit, no c- spine tenderness, neck with full ROM. CHEST: Symmetric, no tenderness at palpation LUNGS: Clear to auscultation bilaterally. No wheezing or crackles. CVS: Regular rate and rhythm, S1 and S2 present, no murmurs or gallops appreciated. ABDOMEN: Soft, non-tender. No signs of distention. No rebound no guarding, and no masses palpated. Bowel sounds are normal. EXTREMITIES: FROM in all major joints, no edema, no cyanosis or clubbing. NEURO: Alert and oriented x 3. No acute neurological deficits. Speech is normal and follows commands. SKIN: Dry and warm Triage Information Reviewed: Yes Vital Signs On Initial Exam: Initial Vitals Temp Pulse Resp BP Pulse Ox 98.4 F 105 20 153/90 97 10/20/17 20:43 10/20/17 20:43 10/20/17 20:43 10/20/17 20:43 10/20/17 20:43 Vital Signs Reviewed: Yes Diagnostics - Vital Signs Vital Signs Temp Pulse Resp BP Pulse Ox 10/20/17 23:03 98.5 F 85 16 144/90 98 10/20/17 20:43 98.4 F 105 20 153/90 97 - Laboratory Lab Results: Lab Results 10/20/17 10/20/17 10/20/17 Range/Units 22:56 22:56 23:22 WBC 9.4 (3.5-10.8) 10^3/ul RBC 5.51 H (4.0-5.4) 10^6/ul Hgb 16.2 (14.0-18.0) g/dl Hct 48 (42-52) % MCV 87 (80-94) fL MCH 29 (27-31) pg MCHC 34 (31-36) g/dl RDW 14 (10.5-15) % Plt Count 283 (150-450) 10^3/ul MPV 7.7 (7.4-10.4) um3 Neut % (Auto) 62.2 (38-83) % Lymph % (Auto) 28.4 (25-47) % Weld % (Auto) 7.3 H (0-7) % Eos % (Auto) 1.2 (0-6) % Baso % (Auto) 0.9 (0-2) % Absolute Neuts (auto) 5.8 (1.5-7.7) 10^3/ul Absolute Lymphs (auto) 2.7 (1.0-4.8) 10^3/ul Absolute Monos (auto) 0.7 (0-0.8) 10^3/ul Absolute Eos (auto) 0.1 (0-0.6) 10^3/ul Absolute Basos (auto) 0.1 (0-0.2) 10^3/ul Absolute Nucleated RBC 0 10^3/ul Nucleated RBC % 0 Sodium 140 (139-145) mmol/L Potassium 4.2 (3.5-5.0) mmol/L Chloride 103 (101-111) mmol/L Carbon Dioxide 29 (22-32) mmol/L Anion Gap 8 (2-11) mmol/L BUN 12 (6-24) mg/dL Creatinine 1.13 (0.67-1.17) mg/dL Est GFR ( Amer) 105.4 (>60) Est GFR (Non-Af Amer) 81.9 (>60) BUN/Creatinine Ratio 10.6 (8-20) Glucose 78 (70-100) mg/dL Calcium 10.2 (8.6-10.3) mg/dL Total Bilirubin 0.40 (0.2-1.0) mg/dL AST 51 H (13-39) U/L ALT 73 H (7-52) U/L Alkaline Phosphatase 86 (34-104) U/L Total Protein 7.8 (6.4-8.9) g/dL Albumin 5.0 (3.2-5.2) g/dL Globulin 2.8 (2-4) g/dL Albumin/Globulin Ratio 1.8 (1-3) TSH 4.19 (0.34-5.60) mcIU/mL Urine Color Yellow Urine Appearance Clear Urine pH 6.0 (5-9) Ur Specific [place] 1.020 (1.010-1.030) Urine Protein Negative (Negative) Urine Ketones Negative (Negative) Urine Blood Negative (Negative) Urine Nitrate Negative (Negative) Urine Bilirubin Negative (Negative) Urine Urobilinogen Negative (Negative) Ur Leukocyte Esterase Negative (Negative) Urine Glucose Negative (Negative) Salicylates < 2.50 (<30) mg/dL Urine Opiates Screen (None Detect) Acetaminophen < 15 mcg/mL Ur Barbiturates Screen (None Detect) Ur Phencyclidine Scrn (None Detect) Ur Amphetamines Screen (None Detect) U Benzodiazepines Scrn (None Detect) Urine Cocaine Screen (None Detect) U Cannabinoids Screen (None Detect) Serum Alcohol < 10 (<10) mg/dL 10/20/17 Range/Units 23:22 WBC (3.5-10.8) 10^3/ul RBC (4.0-5.4) 10^6/ul Hgb (14.0-18.0) g/dl Hct (42-52) % MCV (80-94) fL MCH (27-31) pg MCHC (31-36) g/dl RDW (10.5-15) % Plt Count (150-450) 10^3/ul MPV (7.4-10.4) um3 Neut % (Auto) (38-83) % Lymph % (Auto) (25-47) % Weld % (Auto) (0-7) % Eos % (Auto) (0-6) % Baso % (Auto) (0-2) % Absolute Neuts (auto) (1.5-7.7) 10^3/ul Absolute Lymphs (auto) (1.0-4.8) 10^3/ul Absolute Monos (auto) (0-0.8) 10^3/ul Absolute Eos (auto) (0-0.6) 10^3/ul Absolute Basos (auto) (0-0.2) 10^3/ul Absolute Nucleated RBC 10^3/ul Nucleated RBC % Sodium (139-145) mmol/L Potassium (3.5-5.0) mmol/L Chloride (101-111) mmol/L Carbon Dioxide (22-32) mmol/L Anion Gap (2-11) mmol/L BUN (6-24) mg/dL Creatinine (0.67-1.17) mg/dL Est GFR ( Amer) (>60) Est GFR (Non-Af Amer) (>60) BUN/Creatinine Ratio (8-20) Glucose (70-100) mg/dL Calcium (8.6-10.3) mg/dL Total Bilirubin (0.2-1.0) mg/dL AST (13-39) U/L ALT (7-52) U/L Alkaline Phosphatase (34-104) U/L Total Protein (6.4-8.9) g/dL Albumin (3.2-5.2) g/dL Globulin (2-4) g/dL Albumin/Globulin Ratio (1-3) TSH (0.34-5.60) mcIU/mL Urine Color Urine Appearance Urine pH (5-9) Ur Specific [place] (1.010-1.030) Urine Protein (Negative) Urine Ketones (Negative) Urine Blood (Negative) Urine Nitrate (Negative) Urine Bilirubin (Negative) Urine Urobilinogen (Negative) Ur Leukocyte Esterase (Negative) Urine Glucose (Negative) Salicylates (<30) mg/dL Urine Opiates Screen None detected (None Detect) Acetaminophen mcg/mL Ur Barbiturates Screen None detected (None Detect) Ur Phencyclidine Scrn None detected (None Detect) Ur Amphetamines Screen None detected (None Detect) U Benzodiazepines Scrn None detected (None Detect) Urine Cocaine Screen None detected (None Detect) U Cannabinoids Screen None detected (None Detect) Serum Alcohol (<10) mg/dL Result Diagrams: 10/20/17 22:56 10/20/17 22:56 Lab Statement: Any lab studies that have been ordered have been reviewed, and results considered in the medical decision making process. Course/Dx - Course Course Of Treatment: 22 y/o M presents to [facility] complaining of increased anger since yesterday evening. Miguelito, mental health housekeeper, spoke with Dr. Duke , psychiatry. Pt will be discharged home. - Differential Dx/Clinical Impression Provider Diagnosis: Stress and adjustment reaction Discharge - Sign-Out/Discharge Documenting (check all that apply): Discharge/Admit/Transfer - Discharge Plan Condition: Stable Disposition: HOME Referrals: Al Pascual MD [Primary Care Provider] - The documentation as recorded by the Siva farmer Tiffany accurately reflects the service I personally performed and the decisions made by , Adilia Sandoval MD.
[2017-10-21 03:26] VITALS: BP 167/90
== END 2017-10-21 03:15 | disposition home or self-care (01) ==
LOC: ED 20:38
DX: F43.20 Adjustment disorder, unspecified (principal); F17.210 Nicotine dependence, cigarettes, uncomplicated; F31.9 Bipolar disorder, unspecified
CPT/HCPCS: 36415; 80053; 80307; 80320; 80329; 81003; 84443; 85025; 99284; G0480

== ENCOUNTER 2018-04-27 12:41 | Emergency (ER) | payer BC, MEDICAID ==
--- NOTE | 2018-04-27 15:13 | UC ---
Respiratory Complaint HPI - HPI Summary HPI Summary: 2 DAYS OF COUGH, WHEEZING, MILD ST AND INTERMITTENT SOB. WORSE AT NIGHT. NO FEVER, EAR PAIN, N/V. IS A SMOKER. - History of Current Complaint Chief Complaint: UCRespiratory Stated Complaint: COLD, COUGH Time Seen by Provider: 04/27/18 14:59 Hx Obtained From: Patient Onset/Duration: Gradual Onset, Lasting Days, Still Present Timing: Constant Severity Initially: Moderate Severity Currently: Moderate Pain Intensity: 7 Pain Scale Used: 0-10 Numeric Character: Cough: Nonproductive Aggravating Factors: Recumbent Position Alleviating Factors: Nothing Associated Signs And Symptoms: Positive: Dyspnea, Wheezing, URI. Negative: Fever, Chills, Pleuritic Chest Pain - Allergies/Home Medications Allergies/Adverse Reactions: Allergies Allergy/AdvReac Type Severity Reaction Status Date / Time No Known Allergies Allergy Verified 04/27/18 12:52 Home Medications: Home Medications OLANzapine TAB* [Zyprexa 10 MG TAB*] 5 mg PO DAILY 04/27/18 [History Confirmed 04/27/18] PMH/Surg Hx/FS Hx/Imm Hx Cardiovascular History: Hypertension - Surgical History Surgical History: Yes Surgery Procedure, Year, and Place: tonsils - Family History Known Family History: Positive: Hypertension, Other Family History: Depression and eating disorder in twin sister. Half-sister with history of conduct problems. - Social History Alcohol Use: None Alcohol Amount: NOT IN 3-4 MONTHS Substance Use Type: None Substance Use Comment - Amount & Last Used: xanax Smoking Status (MU): Heavy Every Day Tobacco Smoker Type: Cigarettes Amount Used/How Often: 1/2 ppd Have You Smoked in the Last Year: Yes Household Exposure Type: Cigarettes - Immunization History Most Recent Influenza Vaccination: 2016/2017 Most Recent Tetanus Shot: Unknown Most Recent Pneumonia Vaccination: uncertain Review of Systems All Other Systems Reviewed And Are Negative: Yes Constitutional: Positive: Negative ENT: Positive: Sore Throat Respiratory: Positive: Shortness Of Breath, Cough, Other - WHEEZE Cardiovascular: Positive: Negative Gastrointestinal: Positive: Negative Neurological: Positive: Negative Physical Exam Triage Information Reviewed: Yes Appearance: Well-Appearing, No Pain Distress, Well-Nourished Vital Signs: Initial Vital Signs Temp 99.1 F 04/27/18 12:49 Pulse 110 04/27/18 12:49 Resp 20 04/27/18 12:49 BP 154/90 12/05/18 12:49 Pulse Ox 98 04/27/18 12:49 Vital Signs Reviewed: Yes Eyes: Positive: Conjunctiva Clear ENT: Positive: Hearing grossly normal, Pharynx normal, TMs normal Neck: Positive: Supple, Nontender Respiratory: Positive: No respiratory distress, No accessory muscle use, Decreased breath sounds, Wheezing - DIFFUSELY Cardiovascular Exam: Normal Abdomen Description: Positive: Soft Musculoskeletal: Positive: No Edema Neurological: Positive: Alert Psychological: Positive: Age Appropriate Behavior Skin: Negative: Rashes UC Diagnostic Evaluation - Laboratory O2 Sat by Pulse Oximetry: 98 Respiratory Course/Dx - Differential Dx/Diagnosis Provider Diagnosis: URI, acute Discharge - Sign-Out/Discharge Documenting (check all that apply): Patient Departure All imaging exams completed and their final reports reviewed: No Studies - Discharge Plan Condition: Stable Disposition: HOME Prescriptions: Albuterol HFA INHALER* [Ventolin HFA Inhaler*] 2 puff INH Q4H PRN #1 mdi PRN Reason: Shortness Of Breath predniSONE TAB* [Deltasone TAB*] 50 mg PO DAILY #5 tab Patient Education Materials: Upper Respiratory Infection (ED) Referrals: Al Pascual MD [Primary Care Provider] - If Needed Additional Instructions: YOU LIKELY HAVE A VIRALLY MEDIATED RESPIRATORY INFECTION WHICH HAS TRIGGERED YOUR ASTHMA SYMPTOMS. WILL TREAT WITH PREDNISONE AND ALBUTEROL TO HELP WITH AIRWAY INFLAMMATION. YOUR URI SHOULD RESOLVE WITH TIME. NO INDICATION FOR ANTIBIOTICS AT PRESENT. REST, HYDRATE, OTC MEDS NEEDED. SEEK FOLLOW-UP IF YOU ARE NOT IMPROVING OVER THE NEXT 1-2 WEEKS. QUIT SMOKING!!! - Billing Disposition and Condition Condition: STABLE Disposition: Home
[2018-04-27 15:40] VITALS: BP 153/88
== END 2018-04-27 15:30 | disposition home or self-care (01) ==
LOC: UCEAST 12:41
DX: J06.9 Acute upper respiratory infection, unspecified (principal); F17.210 Nicotine dependence, cigarettes, uncomplicated
CPT/HCPCS: 99212; G0463

== ENCOUNTER 2018-05-16 17:03 | Emergency (ER) | payer BC, MEDICAID ==
[2018-05-16 17:17] VITALS: BP 139/87
--- NOTE | 2018-05-16 17:29 | UC ---
General HPI - HPI Summary HPI Summary: 23 yo BM presents with concerns over increased thirst and urinary frequency over the last week. He states that when he was a teenager her was diagnosed with "pre-diabetes". Pt reports that yesterday he drank 6 "drinks" of water and juice yesterday and this is not like him. Urinating over 10 times a day and is waking him up in the middle of the night to urinate urgently. Urine color has mostly been clear, but lately has been dark yellow. Says that his appetite has been decreased and not eating as much as he used to. No change in weight and no unintentional weight loss. Last meal was a banana about an hour and a half ago. Denies chest pain, leg edema, abdominal pain No fam history of DM, CAD, CVA, or HTN that he knows of. - History of Current Complaint Chief Complaint: UCGeneralIllness Stated Complaint: FREQUENT URINATION Time Seen by Provider: 05/16/18 17:17 Hx Obtained From: Patient Pain Intensity: 0 - Allergy/Home Medications Allergies/Adverse Reactions: Allergies Allergy/AdvReac Type Severity Reaction Status Date / Time No Known Allergies Allergy Verified 05/16/18 17:11 Home Medications: Home Medications RX: hydrOXYzine HCL TAB* [Atarax TAB 50 MG *] 50 mg PO QID PRN 05/16/18 [ History Confirmed 05/16/18] PMH/Surg Hx/FS Hx/Imm Hx Psychological History: Bipolar Disorder - Surgical History Surgical History: Yes Surgery Procedure, Year, and Place: tonsils - Family History Known Family History: Positive: Hypertension, Other Family History: Depression and eating disorder in twin sister. Half-sister with history of conduct problems. - Social History Lives: With Family Alcohol Use: Rare Alcohol Amount: NOT IN 3-4 MONTHS Substance Use Type: None Substance Use Comment - Amount & Last Used: xanax Smoking Status (MU): Heavy Every Day Tobacco Smoker Type: Cigarettes Amount Used/How Often: 1/2 ppd Have You Smoked in the Last Year: Yes Household Exposure Type: Cigarettes - Immunization History Most Recent Influenza Vaccination: 2016/2016 Most Recent Tetanus Shot: Unknown Most Recent Pneumonia Vaccination: uncertain Review of Systems All Other Systems Reviewed And Are Negative: Yes Constitutional: Positive: Other - Increased thirst Skin: Positive: Negative Respiratory: Positive: Negative Cardiovascular: Positive: Negative Gastrointestinal: Positive: Negative Genitourinary: Positive: Frequency - polyuria due to polydipsia Neurovascular: Positive: Negative Neurological: Positive: Negative Psychological: Positive: Negative Physical Exam - Summary Physical Exam Summary: Vital Signs Reviewed: Yes Skin: Positive: Warm Head/Face: Positive: Normal Head/Face Inspection Eyes: Positive: Normal ENT: Positive: Normal ENT inspection Neck: Positive: Supple Respiratory/Lung Sounds: Positive: Clear to Auscultation Cardiovascular: Positive: Normal, RRR, S1, S2 Abdomen Description: Positive: Nontender Musculoskeletal: Positive: Normal Neurological: Positive: Normal Psychiatric: Positive: Normal, Affect/Mood Appropriate Triage Information Reviewed: Yes Vital Signs: Initial Vital Signs Temp 36.6 C 05/16/18 17:10 Pulse 104 05/16/18 17:10 Resp 18 05/16/18 17:10 BP 139/87 05/16/18 17:10 Pulse Ox 98 05/16/18 17:10 Laboratory Last Values POC Urine Color Dark yellow 05/16/18 17:20 POC Urine Clarity Clear 05/16/18 17:20 POC Urine pH 5.5 (5-9) 05/16/18 17:20 POC Ur Specif [place] 1.025 (1.010-1.030) 05/16/18 17:20 POC Urine Protein 2+ (Negative) A 05/16/18 17:20 POC Ur Glucose (UA) 3+ (Negative) A 05/16/18 17:20 POC Urine Ketones 3+ (Negative) A 05/16/18 17:20 POC Urine Blood 1+ (Negative) A 05/16/18 17:20 POC Urine Nitrite Negative (Negative) 05/16/18 17:20 POC Urine Bilirubin 2+ (Negative) A 05/16/18 17:20 POC Urine Urobilinogen 0.2 (Negative) 05/16/18 17:20 POC U Leukocyte Esteras Negative (Negative) 05/16/18 17:20 POC glucose 251 Vital Signs Reviewed: Yes Course/Dx - Course Course Of Treatment: UA positive for 3+ glucose, random FS is 251. pt at a banana 1 hr ago only. Denies h/o DM in family but is taking zyprexa for related psych DO. Will start Metformin 500 BID and to follow up with his PCP this week. 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 2 days as it is teresa peñaloza tomorrow - Diagnoses Provider Diagnosis: Diabetes mellitus, new onset Discharge - Sign-Out/Discharge Documenting (check all that apply): Patient Departure All imaging exams completed and their final reports reviewed: No Studies - Discharge Plan Condition: Stable Disposition: HOME Prescriptions: RX: metFORMIN* [Glucophage 500 MG TAB *] 500 mg PO BID 30 Days #60 tab Patient Education Materials: Metformin (By mouth), Type 2 Diabetes in Adults: New Diagnosis (DC), Diabetes and Nutrition (ED) Referrals: Al Pascual MD [Primary Care Provider] - 2 Days Additional Instructions: Please follow up with your Primary Doctor this week. Try to avoid sugary foods and drinks - Billing Disposition and Condition Condition: STABLE Disposition: Home
== END 2018-05-16 18:00 | disposition home or self-care (01) ==
LOC: UCEAST 17:03
DX: E11.9 Type 2 diabetes mellitus without complications (principal); F17.210 Nicotine dependence, cigarettes, uncomplicated
CPT/HCPCS: 81003; 99212; G0463

== ENCOUNTER 2018-07-14 12:57 | Emergency (ER) | payer BC, MEDICAID ==
[2018-07-14 13:22] VITALS: BP 125/77
[2018-07-14 13:36] LABS: Influenza A Molecular POSITIVE (Negative)
--- NOTE | 2018-07-14 13:57 | UC ---
FLU HPI - HPI Summary HPI Summary: 23-year-old male comes in with chief complaint of 5 days of fevers chills body aches. Sulci sore throat some rhinorrhea. Chest congestion with some wheezing. He has a history of intermittent bronchospasm primarily when he is ill. No vomiting. [id number] medicines helped the symptoms. - History of Current Complaint Chief Complaint: UCGeneralIllness Stated Complaint: FLU-LIKE SYMPTOMS, COUGH Time Seen by Provider: 07/14/18 13:36 Pain Intensity: 4 - Allergy/Home Medications Allergies/Adverse Reactions: Allergies Allergy/AdvReac Type Severity Reaction Status Date / Time No Known Allergies Allergy Verified 07/14/18 13:22 PMH/Surg Hx/FS Hx/Imm Hx Previously Healthy: Yes Endocrine History: Diabetes - Surgical History Surgical History: Yes Surgery Procedure, Year, and Place: tonsils - Family History Known Family History: Positive: Hypertension, Other Family History: Depression and eating disorder in twin sister. Half-sister with history of conduct problems. - Social History Alcohol Use: Rare Alcohol Amount: NOT IN 3-4 MONTHS Substance Use Type: None Substance Use Comment - Amount & Last Used: xanax Smoking Status (MU): Heavy Every Day Tobacco Smoker Type: Cigarettes Amount Used/How Often: 1/2 ppd Have You Smoked in the Last Year: Yes Household Exposure Type: Cigarettes - Immunization History Most Recent Influenza Vaccination: 2016/2017 Most Recent Tetanus Shot: Unknown Most Recent Pneumonia Vaccination: uncertain Review of Systems All Other Systems Reviewed And Are Negative: Yes Constitutional: Positive: Fever, Chills Skin: Positive: Negative Eyes: Positive: Negative ENT: Positive: Sore Throat, Nasal Discharge, Sinus Congestion Respiratory: Positive: Cough, Other - WHEEZING Cardiovascular: Positive: Negative Gastrointestinal: Positive: Negative Motor: Positive: Negative Neurovascular: Positive: Negative Musculoskeletal: Positive: Myalgia Neurological: Positive: Negative Psychological: Positive: Negative Is Patient Immunocompromised?: No Physical Exam Triage Information Reviewed: Yes Appearance: No Pain Distress, Well-Nourished, Ill-Appearing - MILD Vital Signs: Initial Vital Signs Temp 97.8 F 07/14/18 13:19 Pulse 104 07/14/18 13:19 Resp 20 07/14/18 13:19 BP 125/77 07/14/18 13:19 Pulse Ox 99 07/14/18 13:19 Vital Signs Reviewed: Yes Eye Exam: Normal Eyes: Positive: Conjunctiva Clear ENT: Positive: Pharyngeal erythema, Nasal congestion, Nasal drainage, TMs normal Neck exam: Normal Neck: Positive: Supple Respiratory: Positive: No respiratory distress, Wheezing Cardiovascular: Positive: RRR Musculoskeletal Exam: Normal Musculoskeletal: Positive: Strength Intact, ROM Intact Neurological Exam: Normal Neurological: Positive: Alert, Muscle Tone Normal Psychological Exam: Normal Psychological: Positive: Age Appropriate Behavior Skin Exam: Normal Flu Course/Dx - Differential Dx/Diagnosis Provider Diagnosis: Influenza, Bronchospasm Discharge - Sign-Out/Discharge Documenting (check all that apply): Patient Departure All imaging exams completed and their final reports reviewed: No Studies - Discharge Plan Condition: Stable Disposition: HOME Prescriptions: Albuterol HFA INHALER* [Ventolin HFA Inhaler*] 2 puff INH Q4H PRN #1 mdi PRN Reason: Wheezing Oseltamivir CAP* [Tamiflu CAP*] 75 mg PO BID #10 cap Patient Education Materials: Influenza (ED), Bronchospasm (ED) Referrals: Al Pascual MD [Primary Care Provider] - Additional Instructions: FOLLOW UP WITH YOUR DOCTOR IF NOT COMPLETELY IMPROVED. GET RECHECKED FOR ANY WORSENING OF YOUR CONDITION OR QUESTIONS OR CONCERNS. - Billing Disposition and Condition Condition: STABLE Disposition: Home
== END 2018-07-14 14:00 | disposition home or self-care (01) ==
LOC: UCEAST 12:57
DX: J11.1 Influenza due to unidentified influenza virus with other respiratory manifestations (principal); J98.01 Acute bronchospasm; F17.210 Nicotine dependence, cigarettes, uncomplicated; E11.9 Type 2 diabetes mellitus without complications
CPT/HCPCS: 99212; G0463

== ENCOUNTER 2018-11-29 06:41 | Emergency (ER) | payer BC, MEDICAID ==
[2018-11-29 07:24] LABS: Urine Appearance Clear; Urine Bilirubin Negative (Negative); Urine Blood Negative (Negative); Urine Color Yellow; Urine Glucose Negative (Negative); Urine Ketones Negative (Negative); Urine Nitrite Negative (Negative); Urine Protein Negative (Negative); Urine Specific Gravity 1.017 (1.010-1.030); Urine Urobilinogen Negative (Negative)
[2018-11-29 07:38] LABS: ABS Basophils 0.1 10^3/ul (0-0.2); ABS Eosinophils 0.1 10^3/ul (0-0.6); ABS Lymphocytes 3.3 10^3/ul (1.0-4.8); ABS Monocytes 0.8 10^3/ul (0-0.8); ABS Neutrophils 7.9 10^3/ul (1.5-7.7); Eosinophil % 0.9 %; Hematocrit 47 % (42-52); Hemoglobin 16.3 g/dL (14.0-18.0); Lymphocyte % 26.8 %; Mean Corpuscular HGB Conc 35 g/dL (31-36); Mean Corpuscular Hemoglobin 30 pg (27-31); Mean Corpuscular Volume 85 fL (80-94); Mean Platelet Volume 7.8 fL (7.4-10.4); Nucleated Red Blood Cells % 0.1; Platelet Count 300 10^3/uL (150-450); Red Blood Count 5.51 10^6 /uL (4.18-5.48); Red Cell Distribution Width 14 % (10-15); White Blood Count 12.2 10^3/uL (3.5-10.8)
[2018-11-29 07:44] LABS: Urine Benzodiazepine Screen None Detected (None Detect); Urine Opiates Screen None Detected (None Detect)
[2018-11-29 07:49] LABS: ALT 63 U/L (7-52); AST 38 U/L (13-39); Albumin 4.7 g/dL (3.2-5.2); Albumin/Globulin Ratio 1.7 (1-3); Alkaline Phosphatase 79 U/L (34-104); Anion Gap 6 mmol/L (2-11); BUN/Creatinine Ratio 11.4 (8-20); Blood Urea Nitrogen 12 mg/dL (6-24); CO2 Carbon Dioxide 28 mmol/L (22-32); Calcium 9.7 mg/dL (8.6-10.3); Chloride 103 mmol/L (101-111); EGFR African American 106.9 (>60); EGFR Non-African American 88.3 (>60); Globulin 2.8 g/dL (2-4); Glucose 105 mg/dL (70-100); Potassium 3.7 mmol/L (3.5-5.0); Sodium 137 mmol/L (135-145); Total Protein 7.5 g/dL (6.4-8.9)
[2018-11-29 08:22] LABS: Acetaminophen < 15 mcg/mL; Alcohol < 10 mg/dL (<10); Salicylate < 2.50 mg/dL (<30)
[2018-11-29 08:33] LABS: TSH (Thyroid Stimulating Horm) 3.56 mcIU/mL (0.34-5.60)
[2018-11-29 10:41] VITALS: BP 159/92
--- NOTE | 2018-11-29 12:24 | ED ---
Psychiatric Complaint - HPI Summary HPI Summary: Patient is a 23-year-old male who presents to the ED with request to be admitted to the hospital due to his K to addiction. He states he is addicted to gait to and relapsed last evening. He states he becomes violent if he does not get this and while he states he denies homicidal ideations, he states he would like to "hurt his family and others that given his way." He is denying any physical pain. He denies any suicidal ideations or feeling of wanting to harm himself. - History Of Current Complaint Chief Complaint: EDMentalHealth Time Seen by Provider: 11/29/18 07:00 Hx Obtained From: Patient Onset/Duration: Sudden Onset Timing: Constant Severity Initially: Severe Severity Currently: Severe Character: Anxious Aggravating Factor(s): Nothing Alleviating Factor(s): Nothing Associated Signs And Symptoms: Positive: Negative Has Homicidal: Reports: Thoughts - not with a plan - wants to "hurt people" - Allergies/Home Medications Allergies/Adverse Reactions: Allergies Allergy/AdvReac Type Severity Reaction Status Date / Time No Known Allergies Allergy Verified 11/29/18 06:46 Home Medications: Home Medications RX: OLANzapine TAB* [Zyprexa 10 MG TAB*] 10 mg PO DAILY 11/29/18 [History Confirmed 11/29/18] PMH/Surg Hx/FS Hx/Imm Hx Previously Healthy: Yes Endocrine/Hematology History: Reports: Hx Diabetes Denies: Hx Thyroid Disease Cardiovascular History: Reports: Hx Hypertension - not on meds Respiratory History: Denies: Hx Asthma, Hx Chronic Obstructive Pulmonary Disease (COPD) GI History: Denies: Hx Gastroesophageal Reflux Disease, Hx Ulcer Sensory History: Denies: Hx Contacts or Glasses, Hx Hearing Aid Opthamlomology History: Denies: Hx Contacts or Glasses Neurological History: Denies: Hx Headaches Psychiatric History: Reports: Hx Attention Deficit Hyperactivity Disorder, Hx Inpatient Treatment, Hx Community Mental Health Tx, Hx Bipolar Disorder, Hx of Violent Episodes Against Others Denies: Hx Eating Disorder, Hx Depression - Surgical History Surgery Procedure, Year, and Place: tonsils - Immunization History Hx Pertussis Vaccination: No Immunizations Up to Date: Yes Infectious Disease History: No Infectious Disease History: Denies: Hx Clostridium Difficile, Hx Hepatitis, Hx Human Immunodeficiency Virus (HIV), Hx of Known/Suspected MRSA, Hx Shingles, Hx Tuberculosis, Hx Known/ Suspected VRE, Hx Known/Suspected VRSA, History Other Infectious Disease, Traveled Outside the [place] in Last 30 Days - Family History Known Family History: Positive: Hypertension, Other Family History: Depression and eating disorder in twin sister. Half-sister with history of conduct problems. - Social History Occupation: Unemployed Lives: With Family Alcohol Use: Occasionally Alcohol Amount: NOT IN 3-4 MONTHS Hx Substance Use: Yes Substance Use Type: Reports: Other Substance Use Comment - Amount & Last Used: K2/spice Hx Tobacco Use: Yes Smoking Status (MU): Heavy Every Day Tobacco Smoker Type: Cigarettes Amount Used/How Often: 1/2 ppd Have You Smoked in the Last Year: Yes Review of Systems Constitutional: Negative Negative: Fever, Chills, Fatigue, Skin Diaphoresis Negative: Palpitations, Chest Pain Negative: Shortness Of Breath, Cough Genitourinary: Negative Positive: no symptoms reported, see HPI Negative: Arthralgia, Myalgia Skin: Negative Neurological: Negative All Other Systems Reviewed And Are Negative: Yes Physical Exam Triage Information Reviewed: Yes Vital Signs On Initial Exam: Initial Vitals Temp Pulse Resp BP Pulse Ox 98.2 F 65 18 134/90 99 11/29/18 06:42 11/29/18 06:42 11/29/18 06:42 11/29/18 06:42 11/29/18 06:42 Vital Signs Reviewed: Yes Appearance: Positive: Well-Appearing, Well-Nourished Skin: Positive: Warm, Skin Color Reflects Adequate Perfusion Head/Face: Positive: Normal Head/Face Inspection Eyes: Positive: EOMI, PATRICK, Conjunctiva Clear Neck: Positive: Supple, No Lymphadenopathy Respiratory/Lung Sounds: Positive: Clear to Auscultation, Breath Sounds Present Cardiovascular: Positive: RRR, Pulses are Symmetrical in both Upper and Lower Extremities Musculoskeletal: Positive: Normal, Strength/ROM Intact Neurological: Positive: Speech Normal Psychiatric: Positive: Normal, Affect/Mood Appropriate AVPU Assessment: Alert - [place] Coma Scale Best Eye Response: 4 - Spontaneous Best Motor Response: 6 - Obeys Commands Best Verbal Response: 5 - Oriented Coma Scale Total: 15 Diagnostics - Vital Signs Vital Signs Temp Pulse Resp BP Pulse Ox 11/29/18 10:39 98.4 F 76 18 159/92 98 11/29/18 06:42 98.2 F 65 18 134/90 99 - Laboratory Lab Results: Lab Results 11/29/18 11/29/18 11/29/18 Range/Units 07:10 07:10 07:27 WBC 12.2 H (3.5-10.8) 10^3/uL RBC 5.51 H (4.18-5.48) 10^6 /uL Hgb 16.3 (14.0-18.0) g/dL Hct 47 (42-52) % MCV 85 (80-94) fL MCH 30 (27-31) pg MCHC 35 (31-36) g/dL RDW 14 (10-15) % Plt Count 300 (150-450) 10^3/uL MPV 7.8 (7.4-10.4) fL Neut % (Auto) 65.0 % Lymph % (Auto) 26.8 % [place] % (Auto) 6.7 % Eos % (Auto) 0.9 % Baso % (Auto) 0.6 % Absolute Neuts (auto) 7.9 H (1.5-7.7) 10^3/ul Absolute Lymphs (auto) 3.3 (1.0-4.8) 10^3/ul Absolute Monos (auto) 0.8 (0-0.8) 10^3/ul Absolute Eos (auto) 0.1 (0-0.6) 10^3/ul Absolute Basos (auto) 0.1 (0-0.2) 10^3/ul Absolute Nucleated RBC 0.0 10^3/ul Nucleated RBC % 0.1 Sodium (135-145) mmol/L Potassium (3.5-5.0) mmol/L Chloride (101-111) mmol/L Carbon Dioxide (22-32) mmol/L Anion Gap (2-11) mmol/L BUN (6-24) mg/dL Creatinine (0.67-1.17) mg/dL Est GFR ( Amer) (>60) Est GFR (Non-Af Amer) (>60) BUN/Creatinine Ratio (8-20) Glucose (70-100) mg/dL Calcium (8.6-10.3) mg/dL Total Bilirubin (0.2-1.0) mg/dL AST (13-39) U/L ALT (7-52) U/L Alkaline Phosphatase (34-104) U/L Total Protein (6.4-8.9) g/dL Albumin (3.2-5.2) g/dL Globulin (2-4) g/dL Albumin/Globulin Ratio (1-3) TSH (0.34-5.60) mcIU/mL Urine Color Yellow Urine Appearance Clear Urine pH 6.0 (5-9) Ur Specific [place] 1.017 (1.010-1.030) Urine Protein Negative (Negative) Urine Ketones Negative (Negative) Urine Blood Negative (Negative) Urine Nitrate Negative (Negative) Urine Bilirubin Negative (Negative) Urine Urobilinogen Negative (Negative) Ur Leukocyte Esterase Negative (Negative) Urine Glucose Negative (Negative) Salicylates (<30) mg/dL Urine Opiates Screen None detected (None Detect) Acetaminophen mcg/mL Ur Barbiturates Screen None detected (None Detect) Ur Phencyclidine Scrn None detected (None Detect) Ur Amphetamines Screen None detected (None Detect) U Benzodiazepines Scrn None detected (None Detect) Urine Cocaine Screen None detected (None Detect) U Cannabinoids Screen Presumptive positive A (None Detect) Serum Alcohol (<10) mg/dL 11/29/18 Range/Units 07:28 WBC (3.5-10.8) 10^3/uL RBC (4.18-5.48) 10^6 /uL Hgb (14.0-18.0) g/dL Hct (42-52) % MCV (80-94) fL MCH (27-31) pg MCHC (31-36) g/dL RDW (10-15) % Plt Count (150-450) 10^3/uL MPV (7.4-10.4) fL Neut % (Auto) % Lymph % (Auto) % [place] % (Auto) % Eos % (Auto) % Baso % (Auto) % Absolute Neuts (auto) (1.5-7.7) 10^3/ul Absolute Lymphs (auto) (1.0-4.8) 10^3/ul Absolute Monos (auto) (0-0.8) 10^3/ul Absolute Eos (auto) (0-0.6) 10^3/ul Absolute Basos (auto) (0-0.2) 10^3/ul Absolute Nucleated RBC 10^3/ul Nucleated RBC % Sodium 137 (135-145) mmol/L Potassium 3.7 (3.5-5.0) mmol/L Chloride 103 (101-111) mmol/L Carbon Dioxide 28 (22-32) mmol/L Anion Gap 6 (2-11) mmol/L BUN 12 (6-24) mg/dL Creatinine 1.05 (0.67-1.17) mg/dL Est GFR ( Amer) 106.9 (>60) Est GFR (Non-Af Amer) 88.3 (>60) BUN/Creatinine Ratio 11.4 (8-20) Glucose 105 H (70-100) mg/dL Calcium 9.7 (8.6-10.3) mg/dL Total Bilirubin 0.40 (0.2-1.0) mg/dL AST 38 (13-39) U/L ALT 63 H (7-52) U/L Alkaline Phosphatase 79 (34-104) U/L Total Protein 7.5 (6.4-8.9) g/dL Albumin 4.7 (3.2-5.2) g/dL Globulin 2.8 (2-4) g/dL Albumin/Globulin Ratio 1.7 (1-3) TSH 3.56 (0.34-5.60) mcIU/mL Urine Color Urine Appearance Urine pH (5-9) Ur Specific [place] (1.010-1.030) Urine Protein (Negative) Urine Ketones (Negative) Urine Blood (Negative) Urine Nitrate (Negative) Urine Bilirubin (Negative) Urine Urobilinogen (Negative) Ur Leukocyte Esterase (Negative) Urine Glucose (Negative) Salicylates < 2.50 (<30) mg/dL Urine Opiates Screen (None Detect) Acetaminophen < 15 mcg/mL Ur Barbiturates Screen (None Detect) Ur Phencyclidine Scrn (None Detect) Ur Amphetamines Screen (None Detect) U Benzodiazepines Scrn (None Detect) Urine Cocaine Screen (None Detect) U Cannabinoids Screen (None Detect) Serum Alcohol < 10 (<10) mg/dL Result Diagrams: 11/29/18 07:27 11/29/18 07:28 Lab Statement: Any lab studies that have been ordered have been reviewed, and results considered in the medical decision making process. Course/Dx - Course Course Of Treatment: On arrival into the ED, the patient appears well. Nontoxic in appearing. No abrasions, signs of trauma. He does not appear to be in withdrawal. He states he has K to almost nightly, however has not had it for approximately one week or so until last evening when he relapsed. He is requesting admission to the hospital so he is unable to retrieve K2. Labs obtained withdrawal WNL, positive for cannabinoids. Discussed case with flex unit who completed a mental health evaluation. Per Dr. Vazquez, patient is safe to be discharged home and he is provided with resources. - Differential Dx/Clinical Impression Differential Diagnosis/HQI/PQRI: Positive: Anxiety, Drug Overdose/Intentional, Drug Overdose/Unintentional, Homicidal Ideation Provider Diagnosis: Addiction to drug Discharge - Sign-Out/Discharge Documenting (check all that apply): Patient Departure Patient Received Moderate/Deep Sedation with Procedure: No - Discharge Plan Condition: Stable Disposition: HOME Referrals: Al Pascual MD [Primary Care Provider] - - Billing Disposition and Condition Condition: STABLE Disposition: Home
== END 2018-11-29 10:39 | disposition home or self-care (01) ==
LOC: ED 06:41
DX: F15.20 Other stimulant dependence, uncomplicated (principal); E11.9 Type 2 diabetes mellitus without complications; I10 Essential (primary) hypertension; F17.210 Nicotine dependence, cigarettes, uncomplicated; Z79.899 Other long term (current) drug therapy
CPT/HCPCS: 36415; 80053; 80307; 80320; 80329; 81003; 84443; 85025; 99283; G0480

== ENCOUNTER 2019-01-17 00:05 | Inpatient (IN) | payer BC, MEDICAID ==
[2019-01-17 00:55] LABS: Urine Appearance Clear; Urine Bilirubin Negative (Negative); Urine Blood Negative (Negative); Urine Color Straw; Urine Glucose Negative (Negative); Urine Ketones Negative (Negative); Urine Nitrite Negative (Negative); Urine Protein Negative (Negative); Urine Specific Gravity 1.008 (1.010-1.030); Urine Urobilinogen Negative (Negative)
[2019-01-17 00:56] LABS: ABS Basophils 0.1 10^3/ul (0-0.2); ABS Eosinophils 0.1 10^3/ul (0-0.6); ABS Monocytes 0.7 10^3/ul (0-0.8); ABS Neutrophils 7.4 10^3/ul (1.5-7.7); Eosinophil % 1.2 %; Hematocrit 50 % (42-52); Hemoglobin 17.2 g/dL (14.0-18.0); Lymphocyte % 26.2 %; Mean Corpuscular HGB Conc 35 g/dL (31-36); Mean Corpuscular Hemoglobin 30 pg (27-31); Mean Corpuscular Volume 86 fL (80-94); Mean Platelet Volume 7.5 fL (7.4-10.4); Nucleated Red Blood Cells % 0.2; Platelet Count 241 10^3/uL (150-450); Red Blood Count 5.79 10^6 /uL (4.18-5.48); Red Cell Distribution Width 14 % (10-15); White Blood Count 11.3 10^3/uL (3.5-10.8)
[2019-01-17 01:10] LABS: Urine Benzodiazepine Screen None Detected (None Detect); Urine Opiates Screen None Detected (None Detect)
[2019-01-17 01:15] LABS: ALT 39 U/L (7-52); AST 28 U/L (13-39); Albumin/Globulin Ratio 1.9 (1-3); Alkaline Phosphatase 70 U/L (34-104); Anion Gap 6 mmol/L (2-11); BUN/Creatinine Ratio 11.8 (8-20); Blood Urea Nitrogen 14 mg/dL (6-24); CO2 Carbon Dioxide 30 mmol/L (22-32); Calcium 10.5 mg/dL (8.6-10.3); Chloride 100 mmol/L (101-111); EGFR African American 92.5 (>60); EGFR Non-African American 76.4 (>60); Globulin 2.6 g/dL (2-4); Glucose 98 mg/dL (70-100); Potassium 3.8 mmol/L (3.5-5.0); Sodium 136 mmol/L (135-145); Total Protein 7.6 g/dL (6.4-8.9)
[2019-01-17 01:24] LABS: Acetaminophen < 15 mcg/mL; Alcohol < 10 mg/dL (<10); Salicylate < 2.50 mg/dL (<30)
[2019-01-17 01:38] LABS: TSH (Thyroid Stimulating Horm) 5.86 mcIU/mL (0.34-5.60)
--- NOTE | 2019-01-17 03:24 | ED ---
Psychiatric Complaint - HPI Summary HPI Summary: Patient is a 23 y/o M presenting to ED via EMS with complaints of depression and SI. He reports that he experiences these Sx intermittently but notes that these Sx have been more severe tonight. He states that he does not have a plan of suicide. Patient notes that he has been admitted [place] [facility] [place] and states that he is on depakote, hydroxyzine and zyprexa. PMHx of diabetes, ADHD, bipolar disorder noted. He lives with two roommates. On triage, pain is denied, nothing is noted to aggravate/alleviate Sx. Home medications and allergies are reviewed. - History Of Current Complaint Chief Complaint: EDMentalHealth Time Seen by Provider: 01/17/19 00:27 Hx Obtained From: Patient Onset/Duration: Still Present, Worse Since Timing: Intermittent Episode Lasting Severity Currently: None Character: Depressed Aggravating Factor(s): Nothing Alleviating Factor(s): Nothing Has Suicidal: Reports: Thoughts. Denies: With A Plan - Allergies/Home Medications Allergies/Adverse Reactions: Allergies Allergy/AdvReac Type Severity Reaction Status Date / Time No Known Allergies Allergy Verified 11/29/18 06:46 PMH/Surg Hx/FS Hx/Imm Hx Endocrine/Hematology History: Reports: Hx Diabetes Denies: Hx Thyroid Disease Cardiovascular History: Reports: Hx Hypertension - not on meds Respiratory History: Denies: Hx Asthma, Hx Chronic Obstructive Pulmonary Disease (COPD) GI History: Denies: Hx Gastroesophageal Reflux Disease, Hx Ulcer Sensory History: Denies: Hx Contacts or Glasses Opthamlomology History: Denies: Hx Contacts or Glasses Neurological History: Denies: Hx Headaches Psychiatric History: Reports: Hx Attention Deficit Hyperactivity Disorder, Hx Inpatient Treatment, Hx Community Mental Health Tx, Hx Bipolar Disorder, Hx of Violent Episodes Against Others Denies: Hx Eating Disorder - Surgical History Surgery Procedure, Year, and Place: tonsils Infectious Disease History: No Infectious Disease History: Denies: Hx Clostridium Difficile, Hx Hepatitis, Hx Human Immunodeficiency Virus (HIV), Hx of Known/Suspected MRSA, Hx Shingles, Hx Tuberculosis, Hx Known/ Suspected VRE, Hx Known/Suspected VRSA, History Other Infectious Disease, Traveled Outside the [place] in Last 30 Days - Family History Known Family History: Positive: Hypertension, Other Family History: Depression and eating disorder in twin sister. Half-sister with history of conduct problems. - Social History Alcohol Use: Occasionally Alcohol Amount: NOT IN 3-4 MONTHS Hx Substance Use: Yes Substance Use Type: Reports: Other Substance Use Comment - Amount & Last Used: K2/spice Hx Tobacco Use: Yes Smoking Status (MU): Heavy Every Day Tobacco Smoker Type: Cigarettes Amount Used/How Often: 1/2 ppd Have You Smoked in the Last Year: Yes Review of Systems Negative: Fever - on vitals, temp is 99. 1 F Psychological: Other - positive - SI Positive: Depressed All Other Systems Reviewed And Are Negative: Yes Physical Exam - Summary Physical Exam Summary: VITAL SIGNS: Reviewed. GENERAL: Patient is a well-developed and nourished male who is lying comfortable in the stretcher. Patient is not in any acute respiratory distress. HEAD AND FACE: No signs of trauma. No ecchymosis, hematomas or skull depressions. No sinus tenderness. EYES: PERRLA, EOMI x 2, No injected conjunctiva, no nystagmus. EARS: Hearing grossly intact. Ear canals and tympanic membranes are within normal limits. MOUTH: Oropharynx within normal limits. NECK: Supple, trachea is midline, no adenopathy, no JVD, no carotid bruit, no c- spine tenderness, neck with full ROM CHEST: Symmetric, no tenderness at palpation LUNGS: Clear to auscultation bilaterally. No wheezing or crackles. CVS: Regular rate and rhythm, S1 and S2 present, no murmurs or gallops appreciated. ABDOMEN: Soft, non-tender. No signs of distention. No rebound no guarding, and no masses palpated. Bowel sounds are normal. EXTREMITIES: FROM in all major joints, no edema, no cyanosis or clubbing. NEURO: Alert and oriented x 3. No acute neurological deficits. Speech is normal and follows commands. SKIN: Dry and warm Triage Information Reviewed: Yes Vital Signs On Initial Exam: Initial Vitals Temp Pulse Resp BP Pulse Ox 99.1 F 98 16 139/97 99 01/17/19 00:16 01/17/19 00:16 01/17/19 00:16 01/17/19 00:16 01/17/19 00:16 Vital Signs Reviewed: Yes Diagnostics - Vital Signs Vital Signs Temp Pulse Resp BP Pulse Ox 01/17/19 00:16 99.1 F 98 16 139/97 99 - Laboratory Lab Results: Lab Results 01/17/19 01/17/19 01/17/19 Range/Units 00:30 00:30 00:51 WBC 11.3 H (3.5-10.8) 10^3/uL RBC 5.79 H (4.18-5.48) 10^6 /uL Hgb 17.2 (14.0-18.0) g/dL Hct 50 (42-52) % MCV 86 (80-94) fL MCH 30 (27-31) pg MCHC 35 (31-36) g/dL RDW 14 (10-15) % Plt Count 241 (150-450) 10^3/uL MPV 7.5 (7.4-10.4) fL Neut % (Auto) 65.4 % Lymph % (Auto) 26.2 % [place] % (Auto) 6.6 % Eos % (Auto) 1.2 % Baso % (Auto) 0.6 % Absolute Neuts (auto) 7.4 (1.5-7.7) 10^3/ul Absolute Lymphs (auto) 3.0 (1.0-4.8) 10^3/ul Absolute Monos (auto) 0.7 (0-0.8) 10^3/ul Absolute Eos (auto) 0.1 (0-0.6) 10^3/ul Absolute Basos (auto) 0.1 (0-0.2) 10^3/ul Absolute Nucleated RBC 0.0 10^3/ul Nucleated RBC % 0.2 Sodium (135-145) mmol/L Potassium (3.5-5.0) mmol/L Chloride (101-111) mmol/L Carbon Dioxide (22-32) mmol/L Anion Gap (2-11) mmol/L BUN (6-24) mg/dL Creatinine (0.67-1.17) mg/dL Est GFR ( Amer) (>60) Est GFR (Non-Af Amer) (>60) BUN/Creatinine Ratio (8-20) Glucose (70-100) mg/dL Calcium (8.6-10.3) mg/dL Total Bilirubin (0.2-1.0) mg/dL AST (13-39) U/L ALT (7-52) U/L Alkaline Phosphatase (34-104) U/L Total Protein (6.4-8.9) g/dL Albumin (3.2-5.2) g/dL Globulin (2-4) g/dL Albumin/Globulin Ratio (1-3) TSH (0.34-5.60) mcIU/mL Urine Color Straw Urine Appearance Clear Urine pH 7.0 (5-9) Ur Specific [place] 1.008 L (1.010-1.030) Urine Protein Negative (Negative) Urine Ketones Negative (Negative) Urine Blood Negative (Negative) Urine Nitrate Negative (Negative) Urine Bilirubin Negative (Negative) Urine Urobilinogen Negative (Negative) Ur Leukocyte Esterase Negative (Negative) Urine Glucose Negative (Negative) Salicylates (<30) mg/dL Urine Opiates Screen None detected (None Detect) Acetaminophen mcg/mL Ur Barbiturates Screen None detected (None Detect) Ur Phencyclidine Scrn None detected (None Detect) Ur Amphetamines Screen None detected (None Detect) U Benzodiazepines Scrn None detected (None Detect) Urine Cocaine Screen None detected (None Detect) U Cannabinoids Screen None detected (None Detect) Serum Alcohol (<10) mg/dL 01/17/19 Range/Units 00:51 WBC (3.5-10.8) 10^3/uL RBC (4.18-5.48) 10^6 /uL Hgb (14.0-18.0) g/dL Hct (42-52) % MCV (80-94) fL MCH (27-31) pg MCHC (31-36) g/dL RDW (10-15) % Plt Count (150-450) 10^3/uL MPV (7.4-10.4) fL Neut % (Auto) % Lymph % (Auto) % [place] % (Auto) % Eos % (Auto) % Baso % (Auto) % Absolute Neuts (auto) (1.5-7.7) 10^3/ul Absolute Lymphs (auto) (1.0-4.8) 10^3/ul Absolute Monos (auto) (0-0.8) 10^3/ul Absolute Eos (auto) (0-0.6) 10^3/ul Absolute Basos (auto) (0-0.2) 10^3/ul Absolute Nucleated RBC 10^3/ul Nucleated RBC % Sodium 136 (135-145) mmol/L Potassium 3.8 (3.5-5.0) mmol/L Chloride 100 L (101-111) mmol/L Carbon Dioxide 30 (22-32) mmol/L Anion Gap 6 (2-11) mmol/L BUN 14 (6-24) mg/dL Creatinine 1.19 H (0.67-1.17) mg/dL Est GFR ( Amer) 92.5 (>60) Est GFR (Non-Af Amer) 76.4 (>60) BUN/Creatinine Ratio 11.8 (8-20) Glucose 98 (70-100) mg/dL Calcium 10.5 H (8.6-10.3) mg/dL Total Bilirubin 0.30 (0.2-1.0) mg/dL AST 28 (13-39) U/L ALT 39 (7-52) U/L Alkaline Phosphatase 70 (34-104) U/L Total Protein 7.6 (6.4-8.9) g/dL Albumin 5.0 (3.2-5.2) g/dL Globulin 2.6 (2-4) g/dL Albumin/Globulin Ratio 1.9 (1-3) TSH 5.86 H (0.34-5.60) mcIU/mL Urine Color Urine Appearance Urine pH (5-9) Ur Specific [place] (1.010-1.030) Urine Protein (Negative) Urine Ketones (Negative) Urine Blood (Negative) Urine Nitrate (Negative) Urine Bilirubin (Negative) Urine Urobilinogen (Negative) Ur Leukocyte Esterase (Negative) Urine Glucose (Negative) Salicylates < 2.50 (<30) mg/dL Urine Opiates Screen (None Detect) Acetaminophen < 15 mcg/mL Ur Barbiturates Screen (None Detect) Ur Phencyclidine Scrn (None Detect) Ur Amphetamines Screen (None Detect) U Benzodiazepines Scrn (None Detect) Urine Cocaine Screen (None Detect) U Cannabinoids Screen (None Detect) Serum Alcohol < 10 (<10) mg/dL Result Diagrams: 01/17/19 00:51 01/17/19 00:51 Lab Statement: Any lab studies that have been ordered have been reviewed, and results considered in the medical decision making process. Re-Evaluation - Re-Evaluation First Eval Re-Evaluation Time: 01:41 Comment: [id number] patient was medically cleared for [facility]. Second Eval Re-Evaluation Time: 01:52 Comment: 0152 MH worker Bettye reports that the patient had stated that his Depakote is not working. Bettye recommends admission for the patient. Dr. Duke to be contacted. Course/Dx - Course Course Of Treatment: Patient is a 23 y/o M presenting to ED via EMS with complaints of depression and SI. He reports that he experiences these Sx intermittently but notes that these Sx have been more severe tonight. He states that he does not have a plan of suicide. Patient notes that he has been admitted to [facility] [place] and states that he is on depakote, hydroxyzine and zyprexa. PMHx of diabetes, ADHD, bipolar disorder noted. Physical exam is unremarkable. Labs showed WBC 11.3, RBC 5.79, chloride 100, creatinine 1.19, calcium 10.5, TSH 5.86. UA and tox screen were negative. 0141 patient was medically cleared for [facility]. 0152 MH worker Bettye reports that the patient had stated that his Depakote is not working. Bettye recommends admission for the patient. Dr. Duke to be contacted. 0312 - Patients case was reviewed by Dr. Duke, patient will be admitted to [facility]. - Differential Dx/Clinical Impression Provider Diagnosis: Mood disorder - Physician Notifications Discussed Care Of Patient With: Junito Duke Time Discussed With Above Provider: 03:12 Instructed by Provider To: Other - 0312 - Patients case was reviewed by Dr. Duke, patient will be admitted to [facility]. Discharge ED - Sign-Out/Discharge Documenting (check all that apply): Patient Departure - admit Patient Received Moderate/Deep Sedation with Procedure: No - Discharge Plan Condition: Stable Disposition: [facility]CHIATRIC FACILITY[place] Referrals: Al Pascual MD [Primary Care Provider] - - Attestation Statements Document Initiated by Scribe: Yes Documenting Scribe: RAMAKRISHNA ANDREA Provider For Whom Patriciaibvenancio is Documenting (Include Credential): REUBEN PADILLA MD Scribe Attestation: RAMAKRISHNA Pearce, scribed for REUBEN PADILLA MD on 01/17/19 at 0350. Status of Scribe Document: Ready
[2019-01-17] MEDS ORDERED: Acetaminophen TAB* 325 MG PO PRN (04:26)
[2019-01-17] MEDS ORDERED: Al Hydrox/Mg Hydrox/Simet LIQ* 30 ML UDC PO PRN (04:27)
[2019-01-17] MEDS ORDERED: Nicotine* 2MG (FRUIT FLAVOR) GUM PO PRN (04:27)
[2019-01-17] MEDS ORDERED: hydrOXYzine HCL TAB* 50 MG PO PRN (05:08)
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
[2019-01-17] MEDS: Nicotine PATCH 21 MG/24 HR* PATCH TRANSDERM SCH (13:53)
[2019-01-17] MEDS: Multivitamins/Minerals TAB PO SCH (13:53)
[2019-01-17] MEDS ORDERED: Divalproex ER TAB(*) 500 MG PO SCH (21:00)
[2019-01-17] MEDS: OLANzapine TAB* 10 MG PO SCH (21:16)
[2019-01-17] MEDS: Divalproex ER TAB(*) 500 MG PO SCH (21:16)
[2019-01-17] MEDS: Nicotine Patch Removal NOTE PATCH OFF SCH (21:18)
--- NOTE | 2019-01-18 11:12 | PN ---
Subjective - Subjective Date of Service: 01/18/19 Service Type: 18473 Hosp care 35 min high complexity Subjective: Nursing Report: Patient was visible on unit, no behavioral incidents. Slept overnight. CC: "Fine" Patient was seen and evaluated in the common room. The patient reported he feels tired today. We spoke about diabetes and the association with zyprexa was addressed with the patient. He rather not stay longer in the hospital for these changes and wishes to make these changes in the outpatient setting. Once he is discharged, he wishes to switch to another medications with less metabolic side effects. He reported having adequate appetite and sleep. Per nursing no behavioral issues or overnight events reported. Patient reported that he is tolerating medications without side effects. His family visited him yesterday evening. Objective - General Observations Appears Stated Age: Yes Stature: Overweight Posture: Slumped Eye Contact: Average Behavior/Activity: WNL - Interaction Observations Attitude Towards Examiner: Cooperative Stated Mood: Dysphoric Affect: Blunted Speech Pattern/Tone: Clear Thought Process: Impoverished Perception: WNL Thought Content: Self-Deprecatory Hallucination Type: Denies Delusion Type: Denies - Cognitive Function Orientation: A&O x 4 Level of Consciousness: Awake - Medication Compliance Cooperative with Inpatient Medication Regimen: Yes - Group Participation Participates in Group Activities: No Assessment - Assessment Merits Inpatient Hospitalization: For Immediate Safety Clinical Impression: 23 year old male with history of bipolar I disorder came to the hospital with suicidal ideation and was admitted to the BSU at [facility]. Plan - Plan Treatment Plan: Name: LORE ROPER Birthdate: 1995 [id number] Plan # Q30 minute observation with staff pass # The patient requires psychiatric inpatient admission at this time to assure safety, receive treatment and work toward stabilization. # EKG ordered for risk of QT prolongation of antipsychotic medication. # Obtain collateral information once release is signed. # Collaboration with New Car Make Ready Worker Hillary Ruiz. # Continue Depakote to 2000mg qhs for mood stabilization # Addressed diabetes and the association with zyprexa was addressed with the patient. He rather not stay longer in the hospital for these changes and wishes to make these changes in the outpatient setting. Other treatment alternatives include abilify, latuda, geodon which have less metabolic influence. # Depakote level 45 # [facility] ACT team was contacted and informed of risks of current treatment and plan to address on outpatient basis. # Patient can return to live at [place]. Tobacco use disorder: Nicotine supplement offered and put in place. #Goals before discharge include: Psychiatric stabilization Tentative Discharge: Sodium 136 mmol/L (135-145) 01/17/19 00:51 Potassium 3.8 mmol/L (3.5-5.0) 01/17/19 00:51 BUN 14 mg/dL (6-24) 01/17/19 00:51 Creatinine 1.19 mg/dL (0.67-1.17) H 01/17/19 00:51 Hemoglobin A1c 5.7 % (4.0-5.6) H 01/17/19 00:51 Calcium 10.5 mg/dL (8.6-10.3) H 01/17/19 00:51 AST 28 U/L (13-39) 01/17/19 00:51 ALT 39 U/L (7-52) 01/17/19 00:51 Vital Signs Temp Pulse Resp BP Pulse Ox 98.2 F 80 16 105/65 100 01/18/19 08:00 01/18/19 08:00 01/18/19 08:00 01/18/19 08:00 01/18/19 08:00 Continued Medication Management: Continue Outpt Medication Medications: Current Medications Acetaminophen (Tylenol Tab*) 650 mg PO Q4H PRN PRN Reason: PAIN; OR TEMP >101 Al Hydrox/Mg Hydrox/Simethicone (Maalox Plus*) 30 ml PO Q4H PRN PRN Reason: INDIGESTION Divalproex Sodium (Depakote Er Tab(*)) 2,000 mg PO BEDTIME [facility] Last Admin: 01/17/19 21:16 Dose: 2,000 mg Hydroxyzine HCl (Atarax Tab*) 50 mg PO BEDTIME PRN PRN Reason: .ANXIETY Multivitamins/Minerals (Theragran/Minerals Tab*) 1 tab PO DAILY [facility] Last Admin: 01/17/19 13:53 Dose: Not Given Nicotine (Nicotine Patch 21 Mg/24 Hr*) 1 patch TRANSDERM DAILY [facility] Last Admin: 01/17/19 13:53 Dose: Not Given Nicotine Polacrilex (Nicotine Gum*) 2 mg PO Q2H PRN PRN Reason: CRAVING Olanzapine (Zyprexa Tab*) 10 mg PO BEDTIME [facility] Last Admin: 01/17/19 21:16 Dose: 10 mg Pharmacy Profile Note (Nicotine Patch Removal Note*) 1 note PATCH OFF 2100 [facility] Last Admin: 01/17/19 21:18 Dose: Not Given - Discharge Plan Discharge Plan: Inpatient Hospitalization
[2019-01-18] MEDS: Nicotine PATCH 21 MG/24 HR* PATCH TRANSDERM SCH (13:03)
[2019-01-18] MEDS: Multivitamins/Minerals TAB PO SCH (13:03)
[2019-01-18] MEDS: Divalproex ER TAB(*) 500 MG PO SCH (20:14)
[2019-01-18] MEDS: OLANzapine TAB* 10 MG PO SCH (20:14)
[2019-01-18] MEDS: Nicotine Patch Removal NOTE PATCH OFF SCH (20:15)
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
[2019-01-19 08:46] VITALS: BP 123/80
[2019-01-19] MEDS: Multivitamins/Minerals TAB PO SCH (10:10)
[2019-01-19] MEDS: Nicotine PATCH 21 MG/24 HR* PATCH TRANSDERM SCH (10:10)
== END 2019-01-19 13:15 | disposition home or self-care (01) | DRG 753 ==
LOC: ED 00:05 → BSU 04:18
PROVIDERS: ADMIT Psychiatry & Neurology Psychiatry; ATTEND Psychiatry & Neurology Psychiatry
DX: F31.30 Bipolar disorder, current episode depressed, mild or moderate severity, unspecified (principal); R45.851 Suicidal ideations; E11.9 Type 2 diabetes mellitus without complications; F90.9 Attention-deficit hyperactivity disorder, unspecified type; I10 Essential (primary) hypertension; F17.210 Nicotine dependence, cigarettes, uncomplicated; F41.9 Anxiety disorder, unspecified; F91.3 Oppositional defiant disorder; E66.3 Overweight; Z82.49 Family history of ischemic heart disease and other diseases of the circulatory system; Z81.8 Family history of other mental and behavioral disorders; Z72.89 Other problems related to lifestyle; Z91.5 Personal history of self-harm; Z68.34 Body mass index [BMI] 34.0-34.9, adult
CPT/HCPCS: 36415; 80053; 80164; 80307; 80320; 80329; 81003; 83036; 84443; 85025; 99222; 99233; 99238; 99285; A9270-GY; G0480

== ENCOUNTER 2019-09-05 19:24 | Emergency (ER) | payer BC, MEDICAID ==
--- NOTE | 2019-09-05 19:40 | ED ---
Psychiatric Complaint - HPI Summary HPI Summary: This patient is a 24 y/o male presenting to [facility] for a mental health evaluation. Patient reports he has hx of depression and bipolar disorder. He believes his bipolar disorder "is acting up" and has been "overly sensitive towards things" feeling anxious, anger, and depression. Patient admits to having suicidal ideation thoughts. Denies SI plan. He states he has attempted to commit suicide in the past. Denies HI thoughts/plan. 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 Patient reports he went through "$100 of it in two days." Denies any other drug use. He notes he smokes cigarettes. Denies alcohol use. Home Medications Medication Instructions Recorded Confirmed Type hydrOXYzine HCL TAB* [Atarax TAB 50 mg PO QID PRN 05/16/18 09/05/19 History 50 MG *] OLANzapine TAB* [Zyprexa 10 MG 10 mg PO BEDTIME tab 01/19/19 09/05/19 Rx TAB*] Albuterol HFA INHALER* [Ventolin 1 puff INH Q6H PRN 09/05/19 09/05/19 History HFA Inhaler*] Divalproex ER TAB(*) [Depakote ER 1,500 mg PO BEDTIME 09/05/19 09/05/19 History TAB(*)] metFORMIN* [Glucophage 500 MG TAB 500 mg PO BID 09/05/19 09/05/19 History *] risperiDONE TAB* [RisperDAL*] 2 mg PO DAILY 09/05/19 09/05/19 History - History Of Current Complaint Chief Complaint: EDSuicidal Time Seen by Provider: 09/05/19 19:34 Hx Obtained From: Patient Onset/Duration: Lasting Days, Still Present Timing: Days Severity Currently: Mild Character: Depressed, Anxious, Angry Aggravating Factor(s): Drug Use Alleviating Factor(s): Nothing Associated Signs And Symptoms: Negative: Sleep Disturbance, Appetite Change Has Suicidal: Reports: Thoughts. Denies: With A Plan Has Homicidal: Denies: Thoughts, With A Plan Recent Stressor(s): drug use - Allergies/Home Medications Allergies/Adverse Reactions: Allergies Allergy/AdvReac Type Severity Reaction Status Date / Time No Known Allergies Allergy Verified 09/05/19 19:30 Home Medications: Home Medications hydrOXYzine HCL TAB* [Atarax TAB 50 MG *] 50 mg PO QID PRN 05/16/18 [History Confirmed 09/05/19] OLANzapine TAB* [Zyprexa 10 MG TAB*] 10 mg PO BEDTIME tab 01/19/19 [Rx Confirmed 09/05/19] Albuterol HFA INHALER* [Ventolin HFA Inhaler*] 1 puff INH Q6H PRN 09/05/19 [ History Confirmed 09/05/19] Divalproex ER TAB(*) [Depakote ER TAB(*)] 1,500 mg PO BEDTIME 09/05/19 [History Confirmed 09/05/19] metFORMIN* [Glucophage 500 MG TAB *] 500 mg PO BID 09/05/19 [History Confirmed 09/05/19] risperiDONE TAB* [RisperDAL*] 2 mg PO DAILY 09/05/19 [History Confirmed 09/05/19 ] PMH/Surg Hx/FS Hx/Imm Hx Endocrine/Hematology History: Denies: Hx Diabetes, Hx Thyroid Disease Cardiovascular History: Reports: Hx Hypertension - not on meds Respiratory History: Denies: Hx Asthma, Hx Chronic Obstructive Pulmonary Disease (COPD) GI History: Denies: Hx Gastroesophageal Reflux Disease, Hx Ulcer Sensory History: Denies: Hx Contacts or Glasses, Hx Hearing Aid Opthamlomology History: Denies: Hx Contacts or Glasses Neurological History: Denies: Hx Headaches Psychiatric History: Reports: Hx Attention Deficit Hyperactivity Disorder, Hx Depression, Hx Inpatient Treatment, Hx Community Mental Health Tx, Hx Bipolar Disorder, Hx of Violent Episodes Against Others Denies: Hx Anxiety, Hx Eating Disorder - Surgical History Surgery Procedure, Year, and Place: tonsils Infectious Disease History: No Infectious Disease History: Denies: Hx Clostridium Difficile, Hx Hepatitis, Hx Human Immunodeficiency Virus (HIV), Hx of Known/Suspected MRSA, Hx Shingles, Hx Tuberculosis, Hx Known/ Suspected VRE, Hx Known/Suspected VRSA, History Other Infectious Disease, Traveled Outside the [place] in Last 30 Days - Family History Known Family History: Positive: Hypertension, Other Family History: Depression and eating disorder in twin sister. Half-sister with history of conduct problems. - Social History Alcohol Use: None Alcohol Amount: NOT IN 3-4 MONTHS Hx Substance Use: Yes Substance Use Type: Reports: None Substance Use Comment - Amount & Last Used: K2/spice Hx Tobacco Use: Yes Smoking Status (MU): Heavy Every Day Tobacco Smoker Type: Cigarettes Amount Used/How Often: 1/2 ppd Have You Smoked in the Last Year: Yes Review of Systems Negative: Fever, Other - NEGATIVE: appetite change, sleep disturbance Cardiovascular: Negative Respiratory: Negative Gastrointestinal: Negative Psychological: Other - POSITIVE: SI thoughts Negative: Other - NEGATIVE: SI plan, HI thoughts/plan All Other Systems Reviewed And Are Negative: Yes Physical Exam - Summary Physical Exam Summary: VITAL SIGNS: Reviewed. GENERAL: Patient is a well-developed and nourished male. Patient is not in any acute respiratory distress. HEAD AND FACE: No signs of trauma. No ecchymosis, hematomas or skull depressions. No sinus tenderness. EYES: PERRLA, EOMI x 2, No injected conjunctiva, no nystagmus. EARS: Hearing grossly intact. Ear canals and tympanic membranes are within normal limits. MOUTH: Oropharynx within normal limits. NECK: Supple, trachea is midline, no adenopathy, no JVD, no carotid bruit, no c- spine tenderness, neck with full ROM. CHEST: Symmetric, no tenderness at palpation LUNGS: Clear to auscultation bilaterally. No wheezing or crackles. CVS: Regular rate and rhythm, S1 and S2 present, no murmurs or gallops appreciated. ABDOMEN: Soft, non-tender. No signs of distention. No rebound no guarding, and no masses palpated. Bowel sounds are normal. EXTREMITIES: FROM in all major joints, no edema, no cyanosis or clubbing. NEURO: Alert and oriented x 3. No acute neurological deficits. Speech is normal and follows commands. SKIN: Dry and warm Triage Information Reviewed: Yes Vital Signs On Initial Exam: Initial Vitals Temp Pulse Resp BP Pulse Ox 98.7 F 118 16 154/90 97 09/05/19 19:25 09/05/19 19:25 09/05/19 19:25 09/05/19 19:25 09/05/19 19:25 Vital Signs Reviewed: Yes Procedures - Sedation Patient Received Moderate/Deep Sedation with Procedure: No Diagnostics - Vital Signs Vital Signs Temp Pulse Resp BP Pulse Ox 09/05/19 19:25 98.7 F 118 16 154/90 97 - Laboratory Result Diagrams: 09/05/19 19:51 09/05/19 19:51 Lab Statement: Any lab studies that have been ordered have been reviewed, and results considered in the medical decision making process. Re-Evaluation - Re-Evaluation First Eval Re-Evaluation Time: 19:39 Comment: Patient is medically cleared. Course/Dx - Course Assessment/Plan: Patient is a 24 y/o male presenting to [facility] for a mental health evaluation. Patient reports he has hx of depression and bipolar disorder. He believes his bipolar disorder "is acting up" and has been overly sensitive towards things feeling anxious, anger, and depression. Patient admits to having suicidal ideation thoughts. Denies SI plan. He states he has attempted to commit suicide in the past. Denies HI thoughts/plan. 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 Blood work w/o a significant abnormality. He is medically cleared. Patient is waiting for a MHE. Patient is hemodynamically stable and A+O x 3. He will be signed out to Dr. Cummings at shift change awaiting mental health evaluation and pending disposition. - Differential Dx/Clinical Impression Provider Diagnosis: Substance induced mood disorder - Critical Care Time Critical Care Statement: Critical care time is provided exclusive of any time spent performing procedures. Discharge ED - Sign-Out/Discharge Documenting (check all that apply): Sign-Out Patient Signing out patient TO: Jayden Cummings - pending MHE - Discharge Plan Condition: Stable Disposition: HOME Referrals: Lalit RING,Meena Torrez [Nurse Practitioner] - - Billing Disposition and Condition Condition: STABLE - Attestation Statements Document Initiated by Scribe: Yes Documenting Scribe: Nelli Albert Provider For Whom Paul is Documenting (Include Credential): Jean Jurado MD Scribe Attestation: Nelli Pearce, scribed for Jean Jurado MD on 09/06/19 at 1230. Scribe Documentation Reviewed: Yes Provider Attestation: The documentation as recorded by the radhaibeNelli accurately reflects the service I personally performed and the decisions made by me, Jean Jurado MD Status of Scribe Document: Viewed
[2019-09-05 20:00] LABS: ABS Basophils 0.1 10^3/ul (0-0.2); ABS Eosinophils 0.2 10^3/ul (0-0.6); ABS Lymphocytes 3.5 10^3/ul (1.0-4.8); ABS Monocytes 0.6 10^3/ul (0-0.8); ABS Neutrophils 8.5 10^3/ul (1.5-7.7); Eosinophil % 1.6 %; Hematocrit 47 % (42-52); Lymphocyte % 27.3 %; Mean Corpuscular HGB Conc 36 g/dL (31-36); Mean Corpuscular Hemoglobin 31 pg (27-31); Mean Corpuscular Volume 86 fL (80-94); Mean Platelet Volume 7.6 fL (7.4-10.4); Nucleated Red Blood Cells % 0.1; Platelet Count 374 10^3/uL (150-450); Red Blood Count 5.53 10^6 /uL (4.18-5.48); Red Cell Distribution Width 14 % (10-15)
--- OUTSIDE RECORDS SUMMARY | 2019-09-05 20:04 | XMS REPORT | Summary of Care ---
:1995 Author Organization [facility] Address [address] [facility] [place] [address] Care Team Providers Name Role Phone Rene Nation Primary Care Provider Reason for Visit Reason Comments New Patient Pt presents to establish care Check Up Pt has a question that he would like to discuss with the provider Encounter Details Date Type Department Care Team Description 08/08/2019 Office Visit Shawn Internal Rene Nation, Routine general medical examination at a health care facility (Primary Dx); Medicine PA Attempting to conceive; [address] [facility] Type 2 diabetes mellitus without complication, without long-term current use of insulin ([facility]); [place] [address] [place] [address] Nicotine dependence, cigarettes, uncomplicated; [phone] Mild intermittent asthma in adult without complication Allergies No Known Allergiesdocumented as of this encounter (statuses as of 08/08/2019) Medications Medication Sig Dispensed Refills Start Date End Date Status Divalproex Sodium Take by mouth. 0 Active (DEPAKOTE PO) hydrALAZINE Take 10 mg by 0 Active (APRESOLINE) 10 MG mouth THREE Oral Tab TIMES DAILY. albuterol HFA Take 2 Puffs by 1 Inhaler 3 08/08/2019 Active (VENTOLIN) 108 (90 inhalation Base) MCG/ACT EVERY FOUR Inhalation Aero HOURS NEEDED SolnIndications: (For shortness Mild intermittent of breath). asthma in adult without complication Spacer/Aero-Holdin 1 Device by 1 Each 3 08/08/2019 Active g Chambers Does Does not apply not apply route NEEDED DeviceIndications: (Use with every Mild intermittent inhaler.). asthma in adult without complication risperidone Take 1 mg by 0 Active (RISPERDAL) 1 MG mouth TWICE Oral Tab DAILY. olanzapine Take 10 mg by 0 Active (ZYPREXA) 10 MG mouth EVERY Oral Tab BEDTIME. metFORMIN Take 1 Tab by 90 Tab 1 08/08/2019 Active (GLUCOPHAGE) 500 mouth TWICE MG Oral DAILY. TabIndications: Type 2 diabetes mellitus without complication, without long-term current use of insulin (HCC) Varenicline Take 1 Package 1 Kit 0 08/08/2019 Active Tartrate 0.5 MG X by mouth 11 & 1 MG X 42 DIRECTED. Oral MiscIndications: Nicotine dependence, cigarettes, uncomplicated ALANINE PO Take by mouth. 0 08/08/19 Discontinued 20 (Provider Discontinued) Nutritional Take by mouth. 0 08/08/19 Discontinued Supplements 20 (Other) (RESPALOR PO) metFORMIN HCL 1000 Take by mouth. 0 08/08/19 Discontinued MG Oral Tab 20 (Provider Discontinued) documented as of this encounter (statuses as of 08/08/2019) Active Problems Not on filedocumented as of this encounter (statuses as of 08/08/2019) Social History Tobacco Use Types Packs/Day Years Used Date Current Every Day Smoker 3 9 Started: 08/07/2004 Smokeless Tobacco: Former User Quit: 05/24/2003 Tobacco Cessation: Ready to Quit: Yes; Counseling Given: Yes Alcohol Use Drinks/Week oz/Week Comments Yes occ. Alcohol Habits Answer Date Recorded How often do you have a drink containing alcohol? Monthly or less 08/08/2019 How many drinks containing alcohol do you have on a Not asked typical day when you are drinking? How often do you have six or more drinks on one Not asked occasion? Social Isolation Answer Date Recorded In a typical week, how many times do you More than three times a week 2019 talk on the phone with family, friends, or neighbors? How often do you get together with friends More than three times a week 08/07 or relatives? How often do you attend hoahaoism or Never 08/08/2019 restoration services? Do you belong to any clubs or No 08/08/2019 organizations such as hoahaoism groups, unions, fraternal or athletic groups, or school groups? How often do you attend meetings of the Never 08/08/2019 clubs or organizations you belong to? Are you now , , , Never 08/08/2019 , never or living with a partner? Physical Activity Answer Date Recorded On average, how many days per week do you engage in moderate to 0 days 2019 strenuous exercise (like walking fast, running, jogging, dancing, swimming, biking, or other activities that cause a light or heavy sweat)? On average, how many minutes do you engage in exercise at this 0 min 2019 level? Stress Answer Date Recorded Do you feel stress - tense, restless, nervous, or anxious, Not at all 2019 or unable to sleep at night because your mind is troubled all the time - these days? Financial Resource Strain Answer Date Recorded How hard is it for you to pay for the very basics like Not hard at all 2019 food, housing, medical care, and heating? Food Insecurity Answer Date Recorded Within the past 12 months, you worried that your food would Never true 2019 run out before you got money to buy more. Within the past 12 months, the food you bought just didn't Never true 2019 last and you didn't have money to get more. Transportation Needs Answer Date Recorded In the past 12 months, has lack of transportation kept you from No 08/08/2019 medical appointments or from getting medications? In the past 12 months, has lack of transportation kept you from No 08/08/2019 meetings, work, or getting things needed for daily living? Sex Assigned at Date Recorded Not on file documented as of this encounter Last Filed Vital Signs Vital Sign Reading Time Taken Comments Blood Pressure 132/82 08/08/2019 2:47 PM EDT Pulse 84 08/08/2019 2:47 PM EDT Temperature 36.7 08/08/2019 2:47 PM EDT C (98 F) Respiratory Rate - - Oxygen Saturation 99% 08/08/2019 2:47 PM EDT Inhaled Oxygen Concentration - - Weight 132.9 kg (293 lb) 08/08/2019 2:47 PM EDT Height 182.9 cm (6') 08/08/2019 2:47 PM EDT Body Mass Index 39.74 08/08/2019 2:47 PM EDT documented in this encounter Patient Instructions Patient InstructionsRene Nation PA - 08/08/2019 2:40 PM EDT Patient Instructions for Smoking Cessation: Notify my friends, family, and co-workers about decision to quit. Will ask for their support and understanding Remove tobacco products from my environment. I will ask people not to smoke around me or in my home. I will anticipate challenges at the beginning and will try not to be discouraged. To remember the benefits of quitting such as improved health, feeling better about myself, saving money, etc. Reducing stressors and avoiding triggers are essential keys to my success Finding ways to distract myself when I have the urge to smoke such as taking a walk, reading, playing a board game, putting together a puzzle, etc. Taking medications as my healthcare provider has advised to help alleviate the urge to smoke. If I am unable to take the medication, I will discuss further with my healthcare provider. Recognize reasons for relapse in my past attempts. What did and did not work for me Consider connecting with group, individual, or telephone counseling Education Resources: AHRQ: Treating Tobacco Use & Dependence http://www.ahrq.gov/professionals/clinicians-providers/guidelines- recommendations/tobacco/index.html National Smoking Cessation Site http://smokefree.gov [facility] Quitlines: [place]: 4-053-LFJT-NOW (681-976-8115) [place]: http://www.T1 Visions/ [facility] Smoke Free Community: http://www.portal.[facility].ga.us/portal/banquet server on call.pt/community/smoke_free/[address] [facility] Tobacco Control Program: http:// www.health.[place].gov/prevention/tobacco_control Plan My Quit www.PingTank.Lynk/Jaleesa Quitter's Cherokee 1. Download Quitter's Cherokee from Grow/Google Play 2. Enter personal Email and create a password 3. Follow and respond to prompts 4. Enter code provided by apple brambila documented in this encounter Progress Notes Rene Nation PA - 08/08/2019 2:40 PM EDT PATIENT: Sabino Simpson : 1995 DATE OF SERVICE: 08/08/2019 CHIEF COMPLAINT: Chief Complaint Patient presents with ? New Patient Pt presents to establish care ? Check Up Pt has a question that he would like to discuss with the provider Subjective HISTORY OF PRESENT ILLNESS: Sabino Simpson is a 24-y.o. male. Sabino presents to the office to establish care with a provider. Currently sees [facility] for mental health care, in which he gets his depakote and hydralazine at. He is currently taking all of his medications as prescribed in his medication list. Today he states that he is feeling well and has questions about fertility. He is currently trying to have a child and has been doing so for the last 6 months. He has three children, significant other does not have children but has had a miscarriage in the past. No other acute questions or concerns for today. Past Medical History: Diagnosis Date ? Anxiety ? Asthma ? Diabetes mellitus (HCC) type 2 Family History Problem Relation Age of Onset ? No Known Problems Mother ? No Known Problems Father ? No Known Problems Sister ? No Known Problems Brother ? No Known Problems Daughter ? No Known Problems Son ? No Known Problems Sister ? No Known Problems Son Current Outpatient Medications Medication Sig ? albuterol HFA (VENTOLIN) 108 (90 Base) MCG/ACT Inhalation Aero Soln Take 2 Puffs by inhalation EVERY FOUR HOURS NEEDED (For shortness of breath) . ? Divalproex Sodium (DEPAKOTE PO) Take by mouth. ? hydrALAZINE (APRESOLINE) 10 MG Oral Tab Take 10 mg by mouth THREE TIMES DAILY. ? metFORMIN (GLUCOPHAGE) 500 MG Oral Tab Take 1 Tab by mouth TWICE DAILY. ? olanzapine (ZYPREXA) 10 MG Oral Tab Take 10 mg by mouth EVERY BEDTIME. ? risperidone (RISPERDAL) 1 MG Oral Tab Take 1 mg by mouth TWICE DAILY. ? Spacer/Aero-Holding Chambers Does not apply Device 1 Device by Does not apply route NEEDED (Use with every inhaler.). ? Varenicline Tartrate 0.5 MG X 11 & 1 MG X 42 Oral Misc Take 1 Package by mouth DIRECTED. No current facility-administered medications for this visit. No Known Allergies Social History Socioeconomic History ? Marital status: Single Spouse name: Not on file ? Number of children: Not on file ? Years of education: Not on file ? Highest education level: Not on file Occupational History ? Not on file Social Needs ? Financial resource strain: Not hard at all ? Food insecurity Worry: Never true Inability: Never true ? Transportation needs Medical: No Non-medical: No Tobacco Use ? Smoking status: Current Every Day Smoker Packs/day: 3.00 Years: 9.00 Pack years: 27.00 Start date: 08/07/2004 ? Smokeless tobacco: Former User Quit date: 05/24/2003 Substance and Sexual Activity ? Alcohol use: Yes Frequency: Monthly or less Comment: occ. ? Drug use: Yes Types: Marijuana Comment: pt has done all of the above at some point ? Sexual activity: Yes Partners: Female Lifestyle ? Physical activity Days per week: 0 days Minutes per session: 0 min ? Stress: Not at all Relationships ? Social connections Talks on phone: More than three times a week Gets together: More than three times a week Attends restoration service: Never Active member of club or organization: No Attends meetings of clubs or organizations: Never Relationship status: Never ? Intimate partner violence Fear of current or ex partner: Not on file Emotionally abused: Not on file Physically abused: Not on file Forced sexual activity: Not on file Other Topics Concern ? Not on file Social History Narrative ? Not on file Over the last 2 weeks, have you been feeling down, depressed, anxious, or hopeless?: 1 Over the past 2 weeks, have you felt little interest or pleasure in doing things ?: 1 REVIEW OF SYSTEMS: Review of Systems Constitutional: Negative for chills, fever, malaise/fatigue and weight loss. HENT: Negative for congestion, ear pain, hearing loss, sore throat and tinnitus. Eyes: Negative for blurred vision, double vision and photophobia. Respiratory: Negative for cough, sputum production and shortness of breath. Cardiovascular: Negative for chest pain, palpitations, orthopnea and leg swelling. Gastrointestinal: Negative for abdominal pain, blood in stool, diarrhea and heartburn. Genitourinary: Negative for dysuria, flank pain and hematuria. Musculoskeletal: Negative for falls, joint pain and myalgias. Skin: Negative for itching and rash. Neurological: Negative for dizziness, sensory change, speech change, loss of consciousness and weakness. Endo/Heme/Allergies: Negative for environmental allergies and polydipsia. Does not bruise/bleed easily. Psychiatric/Behavioral: Negative for depression, substance abuse and suicidal ideas. The patient is not nervous/anxious. Objective PHYSICAL EXAM: VITALS: BP 132/82 (BP Location: Left arm, Patient Position: Sitting) | Pulse 84 | Temp 98 F (36.7 C) (Tympanic) | Ht 6' (1.829 m) | Wt 293 lb ( 132.9 kg) | SpO2 99% | BMI 39.74 kg/m Body mass index is 39.74 kg/m. Physical Exam Vitals signs and nursing note reviewed. Constitutional: General: He is not in acute distress. Appearance: He is not ill-appearing or diaphoretic. HENT: Head: Normocephalic and atraumatic. Right Ear: Tympanic membrane, ear canal and external ear normal. Left Ear: Tympanic membrane, ear canal and external ear normal. Nose: No congestion or rhinorrhea. Mouth/Throat: Mouth: Mucous membranes are moist. Pharynx: No oropharyngeal exudate or posterior oropharyngeal erythema. Eyes: General: Right eye: No discharge. Left eye: No discharge. Extraocular Movements: Extraocular movements intact. Conjunctiva/sclera: Conjunctivae normal. Pupils: Pupils are equal, round, and reactive to light. Neck: Musculoskeletal: Normal range of motion and neck supple. No muscular tenderness. Cardiovascular: Rate and Rhythm: Normal rate and regular rhythm. Pulses: Normal pulses. Heart sounds: No murmur. No friction rub. No gallop. Pulmonary: Effort: No respiratory distress. Breath sounds: No wheezing, rhonchi or rales. Abdominal: General: Abdomen is flat. Bowel sounds are normal. Palpations: Abdomen is soft. Tenderness: There is no abdominal tenderness. There is no right CVA tenderness, left CVA tenderness, guarding or rebound. Musculoskeletal: Normal range of motion. General: No swelling or tenderness. Lymphadenopathy: Cervical: No cervical adenopathy. Skin: General: Skin is warm and dry. Capillary Refill: Capillary refill takes less than 2 seconds. Findings: No lesion or rash. Neurological: General: No focal deficit present. Mental Status: He is alert and oriented to person, place, and time. Cranial Nerves: No cranial nerve deficit. Motor: No weakness. Coordination: Coordination normal. Deep Tendon Reflexes: Reflexes normal. Psychiatric: Mood and Affect: Mood normal. Behavior: Behavior normal. Thought Content: Thought content normal. ASSESSMENT / IMPRESSION: ICD-9-CM ICD-10-CM 1. Routine general medical examination at a health care facility V70.0 Z00.00 2. Attempting to conceive V49.89 Z78.9 3. Type 2 diabetes mellitus without complication, without long-term current use of insulin (HCC) 250.00 E11.9 COMPREHENSIVE METABOLIC PANEL CBC WITH DIFFERENTIAL GLYCOHEMOGLOBIN A1C MICROALBUMIN, RANDOM URINE W/ CREATININE LIPID PROFILE metFORMIN (GLUCOPHAGE) 500 MG Oral Tab LIPID PROFILE GLYCOHEMOGLOBIN A1C CBC WITH DIFFERENTIAL COMPREHENSIVE METABOLIC PANEL 4. Nicotine dependence, cigarettes, uncomplicated 305.1 F17.210 Varenicline Tartrate 0.5 MG X 11 & 1 MG X 42 Oral Misc 5. Mild intermittent asthma in adult without complication 493.90 J45.20 albuterol HFA (VENTOLIN) 108 (90 Base) MCG/ACT Inhalation Aero Soln Spacer/Aero-Holding Chambers Does not apply Device 1. Sabino is a 24 years old male who presents to the office to establish care. A full history and physical was performed today. 2. Advised patient that it may take up to one year to conceive. If it continues to be a problem and you do not conceive within a year, the significant other should be tested for infertility; especiallygiven that you have three kids of your own. If she is well, come and see me for semen analysis. 3. Patient is a type 2 diabetic who has not had any recent laboratory work. Because of this, we willresume his metformin today and obtain lab work. He will follow up with me in three months. 4. Smoking Cessation Plan Time spent counseling patients on the risks of tobacco use: 6 minutes Discussed smoking cessation with patient. Patient is: Ready to quit with medication. Discussed smoking cessation plan according to AHRQ guidelines: Discussed possible barriers (withdrawal symptoms, weight gain, fear of failure, etc.) Educational materials distributed Follow up visit in one month. 5. Albuterol script refilled. Spacer also provided to improve efficacy of albuterol inhaler. Author: JO Velasco 08/08/2019 16:35 documented in this encounter Plan of Treatment Date Type Specialty Care Team Description 09/06/2019 Office Visit Internal Medicine Rene Nation PA [address] [place] [address] 11/21/2019 Office Visit Internal Medicine Rene Nation PA [address] [place] [address] [phone] Name Type Priority Associated Diagnoses Date/Time COMPREHENSIVE METABOLIC Lab Routine Type 2 diabetes 08/08/2019 3:32 PM PANEL mellitus without EDT complication, without long-term current use of insulin (HCC) CBC WITH DIFFERENTIAL Lab Routine Type 2 diabetes 08/08/2019 3:32 PM mellitus without EDT complication, without long-term current use of insulin (HCC) GLYCOHEMOGLOBIN A1C Lab Routine Type 2 diabetes 08/08/2019 3:32 PM mellitus without EDT complication, without long-term current use of insulin (HCC) LIPID PROFILE Lab Routine Type 2 diabetes 08/08/2019 3:32 PM mellitus without EDT complication, without long-term current use of insulin (HCC) Name Type Priority Associated Diagnoses Order Schedule COMPREHENSIVE METABOLIC Lab Routine Type 2 diabetes Expected: 08/08/2019 PANEL mellitus without (Approximate), complication, without Expires: 08/07/2020 long-term current use of insulin (HCC) CBC WITH DIFFERENTIAL Lab Routine Type 2 diabetes Expected: 08/08/2019 mellitus without (Approximate), complication, without Expires: 08/07/2020 long-term current use of insulin (HCC) GLYCOHEMOGLOBIN A1C Lab Routine Type 2 diabetes Expected: 08/08/2019 mellitus without (Approximate), complication, without Expires: 08/07/2020 long-term current use of insulin (HCC) MICROALBUMIN, RANDOM URINE Lab Routine Type 2 diabetes Expected: 08/08/2019 W/ CREATININE mellitus without (Approximate), complication, without Expires: 02/04/2020 long-term current use of insulin (HCC) LIPID PROFILE Lab Routine Type 2 diabetes Expected: 08/08/2019 mellitus without (Approximate), complication, without Expires: 08/07/2020 long-term current use of insulin (HCC) Health Maintenance Due Date Last Done Comments PNEUMOCOCCAL 0-64 YRS (1 of - 2002 PPSV23) DTaP/Tdap/Td Vaccines (1 - Tdap) 11/02/2019 Postponed from 2007 (Other) DEPRESSION SCREENING 08/07/2020 08/08/2019 INFLUENZA VACCINE (#1) 2020 Postponed from 01/22/2019 (Patient refused) HEPATITIS A IMMUNIZATION SERIES Aged Out No longer eligible based on patient's age to complete this topic HPV IMMUNIZATION SERIES Aged Out No longer eligible based on patient's age to complete this topic MENINGOCOCCAL VACCINE IMM Aged Out No longer eligible based on patient's age to complete this topic documented as of this encounter Results Not on filedocumented in this encounter Visit Diagnoses Diagnosis Routine general medical examination at a health care facility Attempting to conceive Type 2 diabetes mellitus without complication, without long-term current use of insulin (HCC) Nicotine dependence, cigarettes, uncomplicated Mild intermittent asthma in adult without complication documented in this encounter Insurance Payer Benefit Plan / Subscriber ID Effective Dates Phone Address Type Group [place] [id number] 2019-Present Medicaid [place] documented as of this encounter"
[2019-09-05 20:12] LABS: ALT 92 U/L (7-52); AST 47 U/L (13-39); Albumin 4.7 g/dL (3.2-5.2); Albumin/Globulin Ratio 1.5 (1-3); Alkaline Phosphatase 82 U/L (34-104); Anion Gap 10 mmol/L (2-11); BUN/Creatinine Ratio 12.2 (8-20); Blood Urea Nitrogen 14 mg/dL (6-24); CO2 Carbon Dioxide 24 mmol/L (22-32); Calcium 9.8 mg/dL (8.6-10.3); Chloride 103 mmol/L (101-111); EGFR African American 95.4 (>60); EGFR Non-African American 78.8 (>60); Globulin 3.1 g/dL (2-4); Glucose 151 mg/dL (70-100); Potassium 3.9 mmol/L (3.5-5.0); Sodium 137 mmol/L (135-145); Total Protein 7.8 g/dL (6.4-8.9)
[2019-09-05 20:15] LABS: Urine Appearance Clear; Urine Bilirubin Negative (Negative); Urine Blood Negative (Negative); Urine Color Yellow; Urine Glucose Negative (Negative); Urine Ketones Trace (Negative); Urine Nitrite Negative (Negative); Urine Protein Negative (Negative); Urine Specific Gravity 1.027 (1.010-1.030); Urine Urobilinogen Negative (Negative)
[2019-09-05 20:22] LABS: Acetaminophen < 15 mcg/mL; Alcohol < 10 mg/dL (<10); Salicylate < 2.50 mg/dL (<30)
[2019-09-05 20:28] LABS: Urine Benzodiazepine Screen None Detected (None Detect); Urine Opiates Screen None Detected (None Detect)
[2019-09-05 20:36] LABS: TSH (Thyroid Stimulating Horm) 2.44 mcIU/mL (0.34-5.60)
--- NOTE | 2019-09-05 21:04 | ED ---
Progress - Progress Note Progress Note: This pt is a sign out to Dr. Cummings from Dr. Jurado at shift change 2100 2019 pending a MHE and disposition. Re-Evaluation - Re-Evaluation First Eval Re-Evaluation Time: 19:39 Comment: Patient is medically cleared. Course/Dx - Course Course Of Treatment: This pt is a sign out to Dr. Cummings from Dr. Jurado at shift change 2100 09/05/2019 pending a MHE and disposition. Dr. Vazquez, psychiatrist, discharged this pt with a Dx of substance induced mood disorder. He had no further complications during the shift and will be discharged by [facility] psych. - Diagnoses Provider Diagnoses: Substance induced mood disorder - Provider Notifications Discussed Care Of Patient With: Bonny Vazquez Time Discussed With Above Provider: 22:00 Instructed by Provider To: Other - discharge Discharge ED - Sign-Out/Discharge Documenting (check all that apply): Patient Departure - discharge , Receiving Sign-Out Receiving patient FROM: Jean Jurado - Discharge Plan Condition: Stable Disposition: HOME Referrals: Lalit RING,Meena Torrez [Nurse Practitioner] - - Attestation Statements Document Initiated by Scribe: Yes Documenting Scribe: Richard Kaiser Provider For Whom Scribe is Documenting (Include Credential): Jayden Cummings MD Scribe Attestation: Richard Pearce, scribed for Jayden Cummings MD on 09/06/19 at 0140. Status of Scribe Document: Ready
[2019-09-05 22:50] VITALS: BP 138/71
== END 2019-09-05 22:47 | disposition home or self-care (01) ==
LOC: ED 19:24
DX: F19.94 Other psychoactive substance use, unspecified with psychoactive substance-induced mood disorder (principal); I10 Essential (primary) hypertension; F32.9 Major depressive disorder, single episode, unspecified; F17.210 Nicotine dependence, cigarettes, uncomplicated; Z79.84 Long term (current) use of oral hypoglycemic drugs; Z79.899 Other long term (current) drug therapy
CPT/HCPCS: 36415; 80053; 80307; 80320; 80329; 81003; 84443; 85025; 99285; G0480